=== PATIENT | female | born 1960 | race Caucasian/White ===

== ENCOUNTER 2023-12-25 23:46 | Inpatient (IN) | payer MEDICARE, SELFPAY ==
[2023-12-25 19:49] VITALS: BP 156/84
[2023-12-25 20:44] VITALS: BP 135/73
[2023-12-25 20:53] VITALS: BMI 31.0
[2023-12-25 21:00] VITALS: BP 142/67
[2023-12-25 21:08] LABS: % Basophils 0.3 % (0-2); % Eosinophils 0.1 % (0-6); % Immature Granulocytes 0.3 % (0-0.5); % Lymphocytes 4.2 % (20.5-51.1); % Monocytes 4.7 % (1.7-9.3); % Neutrophils 90.4 % (42.2-75.2); Absolute Lymphocytes 0.3 10^3/uL (1.2-3.4); Absolute Monocytes 0.3 10^3/uL (0.1-0.6); Absolute Neutrophils 6.2 10^3/uL (1.4-6.5); Hemoglobin 9.3 g/dL (12.0-16.0); Mean Corp Hgb Conc. 32.1 g/dL (33.0-37.0); Mean Corpuscular Hgb 29.2 pg (27.0-31.0); Mean Corpuscular Volume 91.2 fL (81.0-99.0); Mean Platelet Volume 9.2 fL (7.4-10.4); Nucleated Red Blood Cells % 0 %; Platelet Count 154 10^3/uL (130-400); Red Blood Cell Count 3.18 10^6/uL (4.20-5.40); Red Cell Dist. Width 14.9 % (11.5-14.5); White Blood Cell Count 6.9 10^3/uL (4.8-10.8)
[2023-12-25 21:19] LABS: Lactic Acid 0.7 mmol/L (0.7-2.0)
[2023-12-25 21:19] LABS: Urine Albumin Trace (Neg - Trace); Urine Bilirubin 1+ (Negative); Urine Character Clear (Clear); Urine Color Yellow; Urine Glucose Negative (Negative); Urine Ketone 2+ (Negative); Urine Leukocyte Negative (Negative); Urine Nitrite Negative (Negative); Urine Occult Blood 1+ (Negative); Urine Specific Gravity 1.015 (<1.030); Urine Urobilinogen Negative (Neg - 1+)
[2023-12-25 21:21] LABS: ALT (SGPT) 14 U/L (0-35); AST (SGOT) 20 U/L (14-36); Albumin 3.8 g/dl (3.5-5.0); Alkaline Phosphatase 91 U/L (38-126); Blood Urea Nitrogen 12 mg/dl (7-17); Calcium 8.5 mg/dl (8.4-10.2); Carbon Dioxide 24 mmol/L (22-30); Chloride 101 mmol/L (98-107); Estimated Creatinine Clearance 97 ml/min; Glucose 120 mg/dl (70-99); Sodium 135 mmol/L (135-145); Total Bilirubin 0.5 mg/dl (0.2-1.3); Total Protein 6.7 g/dl (6.3-8.2); eGFR > 60.00
[2023-12-25 21:27] LABS: Urine Squamous Cell 0-2 /LPF (Few)
[2023-12-25 21:28] LABS: Urine Bacteria Few (Negative); Urine Red Blood Cell 0-2 /HPF (0-2); Urine White Cell 0-2 /HPF (0-5)
--- NOTE | 2023-12-25 21:31 | ED.GENMED ---
History of Present Illness
General
Chief Complaint: Skin Problem
Time Seen by Provider: 12/25/23 20:28
Travel History
Have you had any contact with someone who has COVID-19?: No
Do you have any symptoms of coronavirus? Fever > 100 degrees, chills, cough, shortness of breath, sore throat, loss of taste or smell, muscle aches, or headache?: Yes
Symptoms:: Chills
History of Present Illness
History of Present Illness:
63-year-old female presents to the emergency department for evaluation of confusion she apparently was started on antibiotic yesterday due to a left fifth digit infection and today developed a fever and diarrhea. Patient's daughter states that she
has been quite confused throughout the day has been profoundly weak at baseline. Noted on arrival to be hypoxic as well. Patient reports abdominal discomfort nausea and diarrhea.
Past History
Past History
ED Past Medical History: CAD, GERD, HTN, Hypercholesterolemia, NIDDM and Valvular disease
Social History
Tobacco: Former smoker
Alcohol: None
Personal:
Living: with family
Family History
Family History: CAD
Review of Systems
Review of Systems
Allergies reviewed?: Yes
All Other Systems: ROS reviewed and negative except as documented in HPI and ROS
Phy Exam
Physical Exam
Physical Exam:
GEN: Well appearing, NAD, WDWN
Eyes: PERRLA, EOMs intact, no scleral icterus
HENT: NCAT, oral mucosa moist, no JVD, no cervical adenopathy.
Lungs: CTAB, no wheezes, rales, rhonchi, normal chest wall excursion
Cardiac: RRR, no M/R/G, no peripheral edema. Radial pulses 2+ bilat
Abdomen: Soft, mildly tender to the suprapubic space, no rigidity
Neuro: Alert and oriented x 2, confused to time, moves all extremities freely
MSK: No gross deformity or ecchymosis. No edema. No digital clubbing
Skin: No rashes, petechiae. Normal color, no pallor or jaundice.
Psych: Calm, cooperative, proper hygiene
Course
Orders/Labs/Results
Orders:
Orders
12/25/23 20:23
Electrocardiogram (*1) Urgent
Reason for Study: Other
Other Reason for Exam: Possible Sepsis
Cardiac Monitoring- Treatment ONCE
EKG- Treatment ONCE
IV Insert/Care/Rem.- Treatment PRN
O2 Therapy [RESP] Urgent
Titrate/Wean O2 to maintain O2 sat greater than (%): 93
Special Instructions: TO MAINTAIN CONTINUOUS O2 SATS > OR = 93%
Pulse Ox/cont/shift [RESP] Urgent
Quantity: 1
Special Instructions: CONTINUOUS
12/25/23 20:55
Complete Blood Count/With Diff Urgent
Comprehensive Metabolic Panel Urgent
Lactic Acid Q4H
Comment: ON ICE, CANCEL 2ND ORDER IF FIRST LACTIC ACID LEVEL <2
Blood Culture Q30M
ANGELICA Source: Blood/Venous
Specimen Description:
Comment: FROM 2 SEPARATE SITES
12/25/23 21:03
Straight cath- Treatment ONCE
CR Chest - 2 Views Urgent
Comment:
Reason For Exam: fever hypoxia
12/25/23 21:12
COVID-19 Antigen Urgent
Source: Nasal Swab
Urinalysis Reflex To Culture Urgent
Date Specimen was Collected: 12/25/23
Time Specimen was Collected: 21:11
Urine Microscopic Reflex Cult Urgent
Blood Culture Q30M
ANGELICA Source: Blood/Venous
Specimen Description:
Comment: FROM 2 SEPARATE SITES
12/25/23 21:52
CT Abd/Pel (IV only)-DH only Urgent
Comment:
Reason For Exam: abd pain, nausea, diarrhea
Ondansetron Injectable [Zofran] 4 mg IV NOW STA
12/25/23 23:26
Norovirus by PCR Urgent
ANGELICA Source: Feces/Stool
Specimen Description:
Stool Culture Urgent
ANGELICA Source: Feces/Stool
Specimen Description:
0.9% Sodium Chloride 1000 ml [Nss] 1,000 ml IV BOLUS
Acetaminophen [Tylenol] 650 mg PO NOW STA
12/26/23 00:30
Lactic Acid Q4H
Comment: ON ICE, CANCEL 2ND ORDER IF FIRST LACTIC ACID LEVEL <2
Abnormal Lab Results
12/25/23 12/25/23
20:55 21:12
RBC 3.18 L 10^6/uL
(4.20-5.40)
Hgb 9.3 L g/dL
(12.0-16.0)
Hct 29.0 L %
(37.0-47.0)
MCHC 32.1 L g/dL
(33.0-37.0)
RDW 14.9 H %
(11.5-14.5)
Absolute Lymphs (auto) 0.3 L 10^3/uL
(1.2-3.4)
Neutrophils % 90.4 H %
(42.2-75.2)
Lymphocytes % 4.2 L %
(20.5-51.1)
Glucose 120 H mg/dl
(70-99)
Urine Ketones 2+ A
(Negative)
Ur Occult Blood Reflex 1+ A
(Negative)
Urine Bilirubin 1+ A
(Negative)
Urine Bacteria (Reflex) Few A
(Negative)
12/25/23 20:55
12/25/23 20:55
Vital Signs
Initial and Last Documented VS:
Initial Vital Signs
Temp Pulse Resp BP Pulse Ox
99.9 F 105 18 156/84 92
12/25/23 19:49 12/25/23 19:49 12/25/23 19:49 12/25/23 19:49 12/25/23 19:49
Last Documented Vital Signs
Temp Pulse Resp BP Pulse Ox
98.1 F 90 18 120/65 98
12/25/23 23:35 12/25/23 21:00 12/25/23 19:49 12/25/23 23:00 12/25/23 23:30
MDM/Problems Addressed
MDM/Problems Addressed:
Unclear etiology to the patient's symptoms, could be bacterial versus viral GI illness causing diarrhea. Do not think it is related to the recent antibiotics. She is febrile and somewhat altered, not suitable for discharge home, Do not feel there
is any indication for antibiotics at this time given lack of leukocytosis, will follow stool cultures and norovirus
*Critical Care Note
Total Time (30-74mins, 75-104mins- exclusive of procedures): Not Applicable
ED Attending Note
-
Portions of this chart may have been created with voice recognition software.� Occasional wrong word or��sound alike� substitutions may have occurred due to the inherent limitations of voice recognition software.
Discharge Plan
Departure
Patient Disposition: Admit
Date of Disposition: 12/25/23
Time of Disposition: 23:32
Presentation/result/management discussed w/ accepting MD/DO: Hospitalist
Discharge Problem:
Enterocolitis
Interventions
Interventions:
*Risk Screen - Suicide Last Done: 12/25/23 21:20
*General Assessment Last Done: 12/25/23 21:20
*Neglect/Abuse Screening Last Done: 12/25/23 21:20
ED- Fall Risk Assessment Last Done: 12/25/23 21:20
*ED COVID-19 Vaccine History Last Done: 12/25/23 21:20
ED-Skin Assessment Last Done: 12/25/23 21:20
[2023-12-25 21:38] LABS: COVID-19 Antigen Negative (Negative)
[2023-12-25] MEDS: ZOFRAN 4 MG IV (21:54)
[2023-12-25 22:33] VITALS: BP 154/65
[2023-12-25 23:00] VITALS: BP 120/65
[2023-12-25] MEDS: TYLENOL 650 MG PO (23:33)
[2023-12-25] MEDS: NSS 1000 IV (23:34)
[2023-12-26] VITALS: BP 130/112
--- NOTE | 2023-12-26 00:36 | HPS.HSE ---
Addendum entered and electronically signed by Roberto Pearce MD 12/26/23 05:51:
CXR:
1. Mild acute interstitial and alveolar cardiogenic pulmonary edema.
2. Small left pleural effusion.
3. Previous surgical aortic valve replacement.
4. Previous multilevel anterior and posterior fusion in the cervical spine.
5. Bilateral hydroxyapatite deposition disease in the shoulders.
Pending pro BNP
- on IV Lasix
- await CBC Card evaluation
Original Note:
Family Physician
-
Family Physician: Mic Miller
Chief Complaint
-
abdominal discomfort and Hypoxia
History of Present Illness
I could not get any information from the patient as she is confused
Information gathered by chart review and speaking with the ER staff.
HPI
63F chronic back pain with opiate dependence, neck fusion, CAD status post stent, aortic stenosis status post valve replacement, carotid stenosis status post left carotid endarterectomy on 10/19/2023, prior right-sided carotid surgery 5 years ago,
hypertension, hyperlipidemia, GERD, diabetes, COPD, anxiety/depression, kidney stones presenting with evaluation for AMS
Acute confusional state
- started today
- associated with weakness
- patient was hypoxic on arrival with POx 88%
- New Meds: started on ABx yesterday for eft fifth digit infection yesterday
- Reports abdominal discomfort nausea and diarrhea.
At ER:
Febrile T 100.7
POx 88 on RA
Medical History
Past Medical History
Past Medical History: Reports Other
Additional Past Medical History:
chronic back pain with opiate dependence, neck fusion, CAD status post stent, hypertension, hyperlipidemia, GERD, diabetes, COPD, anxiet)
Past Surgical History: Reports Other
Additional Past Surgical History:
, aortic stenosis status post valve replacement, carotid stenosis status post left carotid endarterectomy on 10/19/2023, prior right-sided carotid surgery 5 years ago
Social History
Tobacco: Non-smoker
Alcohol: None
Drug: None
Family History
Family History: Not pertinent
Allergies / Home Medications
Allergies reflects when Allergies were last updated in [facility].
Home Medications with original date entered in [facility]
Allergy/Medication List:
Allergies
Allergy/AdvReac Type Severity Reaction Status Date / Time
Cephalosporins Allergy Unknown Verified 12/25/23 19:48
clams Allergy Vomiting Verified 12/25/23 19:48
penicillin G Allergy Unknown Verified 12/25/23 19:48
Penicillins Allergy Unknown Verified 12/25/23 19:48
pepper (genus Capsicum) Allergy Vomiting Verified 12/25/23 19:48
sulfamethoxazole AdvReac Mild Creatine Verified 12/25/23 19:48
[From Bactrim] Elevation
trimethoprim [From Bactrim] AdvReac Mild Creatine Verified 12/25/23 19:48
Elevation
Home Medications
gabapentin 600 mg tablet 600 mg PO TID Neuropathic pain 07/06/23
acetaminophen 650 mg tablet,extended release 1,300 mg PO BIDPRN PRN mild pain 07/11/23
aspirin 81 mg tablet,delayed release 81 mg PO DAILY Blood Clot Prevention/Tx 07/11/23
citalopram 40 mg tablet 40 mg PO HS Depression/Anxiety #10 tabs 07/24/23
ferrous sulfate 325 mg (65 mg iron) tablet (FeroSul) 325 mg PO DAILY anemia #30 tabs 07/24/23
pantoprazole 40 mg tablet,delayed release 40 mg PO DAILY #30 tabs 07/24/23
atorvastatin 20 mg tablet (Lipitor) 20 mg PO QPM High Cholesterol 10/26/23
diazepam 5 mg tablet 5 mg PO HSPRN PRN SLEEP 10/26/23
metformin 500 mg tablet 500 mg PO BID@0800,1700 Diabetes 10/26/23
atenolol 25 mg tablet 25 mg PO QPM #30 tabs 10/27/23
oxycodone-acetaminophen 10 mg-325 mg tablet 1 tab PO Q4HPRN PRN SEVERE PAIN #30 tabs 11/10/23
polyethylene glycol 3350 17 gram/dose oral powder 17 g PO DAILY #510 grams 11/10/23
Review of Systems
-
Unable to obtain full review of systems at this time due to: Other (confused )
History Source: Physician and Other (chart )
Constitutional: Reports Weight Gain
EENT: Reports No Symptoms
Respiratory: Reports No Symptoms
Cardiac: Reports No Symptoms
Abdomen/GI: Reports Abdominal Pain and Diarrhea
: Reports No Symptoms
Musculoskeletal: Reports No Symptoms
Neurological: Reports Other (confused )
Physical Exam
Vital Signs
Vital Signs
Temp Pulse Resp BP Pulse Ox
98.1 F 90 18 120/65 98
12/25/23 23:35 12/25/23 21:00 12/25/23 19:49 12/25/23 23:00 12/25/23 23:30
Physical Exam
General: No Apparent Distress
HEENT: NormoCephalic, Anicteric and Moist mucous membranes
Respiratory: Clear; No Wheezes, Rales or Rhonchi
Cardiac: S1/S2 and Regular Rhythm
Breast: Deferred by me
GI: Soft, Non Distended and Tender (mildly tender to lower abdomen below he umbilicus )
Rectal: Deferred by Provider
Genito-urinary: Deferred by me
Skin: Warm and Dry
Psych: Calm (cooperative, proper hygiene)
Laboratory Results
-
12/25/23 20:55
12/25/23 20:55
Laboratory Results
Lactic Acid 0.7 mmol/L (0.7-2.0) 12/25/23 20:55
Total Bilirubin 0.5 mg/dl (0.2-1.3) 12/25/23 20:55
AST 20 U/L (14-36) 12/25/23 20:55
ALT 14 U/L (0-35) 12/25/23 20:55
Alkaline Phosphatase 91 U/L (38-126) 12/25/23 20:55
Data Reviewed
-
CT Scan: Report Reviewed by me
Medical Tests (Nuc Med, Echo, EKG etc): Report Reviewed by me
Lab Data: Labs Reviewed by me
Old Records: Reviewed
Impression/Plan
-
Reviewed VS: T max 100.9 POx 88 on RA hi 90s on 2 L O2 Normotensive , HR 90
Wt 178.2 lb - was 169 lb on 11/09
Data
WCC 6.9
Hgb 9.3 - baseline hi 9s to low 10s
Unremarkable CMP
CT AP w contrast
Prominent fluid in the SB and large BW with some wall thickening suspect enterocolitis
No BWO
Colonic diverticulosis
Distended GB with gall stone
Mild IH and extraheaptic biliary ductal dilatation
Pamcreatic calcification
No free fluid
No free air
NEG UA
NEG Covid
EKG
NORMAL SINUS RHYTHM
NORMAL ECG
WHEN COMPARED WITH ECG OF 02-NOV-2023 16:09,
NO SIGNIFICANT CHANGE WAS FOUND
Echo 11/03/23:
EF 65-70%. Stage II DD, Mild/moderate mitral regurgitation. Mild/moderate MS. MG 5 mmHg. Normally functioning bioprosthetic aortic valve. Peak/mean gradients 19/9 mmHg. No AR. Mildly enlarged right ventricular size with normal function. Moderate TR.
Severely elevated PASP. PAP of 56 mm (done when patient volume overloaded).
Last hospitalist admission: 11/02/23 - 11/10/23
Acute hypoxic respiratory sufficiency
Acute on chronic heart failure with preserved ejection fraction
Chronic obstructive pulmonary disease
Dizziness
Acute left fifth metatarsal fracture
Acute kidney injury secondary to Bactrim
Acute urinary tract infection
Constipation
Hyponatremia
Chronic normocytic anemia of chronic disease
Recent left carotid endarterectomy on 10/19/2023
Coronary artery disease status post stent placement
Aortic stenosis status post valve replacement
Essential hypertension
History of type 2 diabetes, now prediabetic with a hemoglobin A1c of 6.0
Chronic back pain secondary to spinal stenosis on chronic opioids
Anxiety/depression
ASSESSMENT & PLAN
Pending Rx reconciliation
AMS suspect TME : Diff etiology infective encephalopathy vs. Hypoxic RI due to volume expansion with acute on chr HFpEF
Chronic narcotic dependent back pain/spinal stenosis
- evaluation as below for cute infective process , acute HF
- Held Percocet, gabapentin, Diazepam
- fall precaution
CT suggest Enterocolitis - infective vs BW congestion due to volume expansion
- check stool Cx, C Diff, Noro virus
- Hold off on IVF
- Held ABx for now
- Held PPI for now
- GI consult
Volume expansion - gained plus 9 lbs since 11/10/23
Suspect acute on chronic HFpEF: LVEF 65 -70 - associated acute hypoxic RI
Dry weight could be around 170 lbs. Current Wt is 178.2 lb
- She is no longer on Frusemide per daughter
- check pro BNP
- IV Lasix 40 daily
- cont. O2 supplement
- CBC card consult
Bio AVR: stable by echo
CAD s/p CABG: stable
- cont. ASA, statin, and BB
Chronic normocytic anemia
Drop in Hgb is likely due to hemodilution form volume expansion
- Trend Hgb
Recent left carotid endarterectomy on 10/18 with residual improving neck swelling from post op edema
Prior right-sided carotid endarterectomy 5 years ago
- on aspirin, statin
Essential hypertension
Hyperlipidemia
- cont statin
GERD
- Held Protonix while evaluation for C Diff
T2DM
- held metformin
- add ISS low
COPD
Anxiety/depression
- cont citalopram, diazepam
HX kidney stones
DVT Px: SQH
Code: DNR confirmed by daughter at bed side
IP TLM
[2023-12-26 01:20] LABS: Glucose - Point of Care 106 mg/dl (70-99)
[2023-12-26 01:23] VITALS: BP 160/74; BMI 30.6
[2023-12-26] MEDS: LASIX 40 MG IV ×2 (01:38→08:04)
[2023-12-26] MEDS: PERCOCET 5/325 2 TABLET PO ×3 (02:06→19:35)
--- NOTE | 2023-12-26 02:13 | PTCARENOTE ---
Received pt from ER @ 0120. Pt AAOX3, VSS. Pt slid over from stretcher to bed but able to get up to BSC x1 assist. Pt c/o 02/25 back and sciatic pain, medicated per SEP. Pt aware of need of stool sample, will obtain when able.
[2023-12-26 07:35] LABS: Glucose - Point of Care 80 mg/dl (70-99)
[2023-12-26] MEDS: TYLENOL 650 MG PO (08:04)
[2023-12-26] MEDS: ASPIR LOW (ENTERIC COATED) 81 MG PO (08:04)
[2023-12-26 08:17] LABS: Hematocrit 29.3 % (37.0-47.0); Hemoglobin 9.4 g/dL (12.0-16.0); Mean Corp Hgb Conc. 32.1 g/dL (33.0-37.0); Mean Corpuscular Hgb 29.1 pg (27.0-31.0); Mean Corpuscular Volume 90.7 fL (81.0-99.0); Mean Platelet Volume 9.5 fL (7.4-10.4); Platelet Count 149 10^3/uL (130-400); Red Blood Cell Count 3.23 10^6/uL (4.20-5.40); Red Cell Dist. Width 14.6 % (11.5-14.5); White Blood Cell Count 5.2 10^3/uL (4.8-10.8)
[2023-12-26] MEDS: NOVOLOG FLEXPEN-LOW RESISTANCE SC (08:19)
[2023-12-26 08:22] VITALS: BP 145/86
--- NOTE | 2023-12-26 08:22 | W.PN.HOSP.TC ---
Today's Communication/Plan
-
Confusion/lethargy seems improved
Continue diuresis
Stool studies
Appreciate GI and cardiology
Assessment / Plan
Assessment / Plan
Physical Exam
General: Not in acute distress
HEENT: Normocephalic, Moist mucous membranes
Respiratory: Clear; No Wheezes, Rales or Rhonchi
Cardiac: S1/S2 and Regular Rhythm
GI: Soft, Non Distended and Tender (mildly tender to lower abdomen below he umbilicus )
Rectal: Deferred by Provider
Genito-urinary: Deferred by me
Skin: Warm and Dry
Psych: Calm (cooperative, proper hygiene)

63-year-old female with hypertension, hyperlipidemia, diabetes, CABG/AVR, CAD, peripheral vascular disease, COPD, GERD presenting with acute change in mental status and diarrhea, CT scan showing acute enterocolitis, among other significant findings
below.
CT Abdomen/Pelvis Results -- as per radiologist's report:
'IMPRESSION:
1. MODERATE ACUTE INFECTIOUS ENTEROCOLITIS involving most of the small bowel and proximal colon.
2. Severe diverticulosis in the sigmoid colon.
3. Mild urinary bladder wall thickening and perivesical inflammation suggesting ACUTE CYSTITIS.
4. 1.5 cm urinary bladder diverticulum.
5. Chronic pancreatitis.
6. Severe calcific atherosclerotic plaque in the common iliac arteries causing greater than 70% diameter stenoses.
7. Severe calcific atherosclerotic plaque in the abdominal aorta.
8. Small hiatal hernia.
9. Mild to moderate intrahepatic biliary dilatation.
10. Distended gallbladder containing cholelithiasis.
11. Mild hepatomegaly.
12. Mild acute interstitial cardiogenic pulmonary edema.
13. Small left pleural effusion.
14. SEVERE CENTRAL CANAL STENOSIS at L4/L5 secondary to severe facet joint arthrosis and periarticular calcifications around the facet joints.'
Assessment/Plan
Concern for Acute Toxic Metabolic Encephalopathy
Chronic narcotic dependence back pain/spinal stenosis
History of UTI
Microscopic Hematuria on UA
- UA this admission was unremarkable this admission
- Was given antibiotics recently due to left fifth digit infection per reports -- but patient developed diarrhea after antibiotics were started
- Wound care consulted
- Follow blood cultures
Acute enterocolitis, secondary to infection versus other
Chronic Diarrhea since 2019, no GI workup done. Last colonoscopy 20 years ago, colon polyps removed as per patient
History of Opioid-Associated Constipation
- Stool culture, C. difficile, WBC, Giardia/Cryptosporidium
- Celiac panel
- Clear liquid diet
- IV fluids
- GI consulted, recommendations appreciated
Acute on chronic HFpEF
- She is no longer on Furosemide per daughter
- ProBNP elevated
- Continue IV Lasix 40 mg daily
- Patient is not on Lasix at home and will likely need to be placed on 20 mg PO daily on discharge.
- cont. O2 supplement
- Cardiology consulted, recommendations appreciated
- No need to repeat echocardiogram this admission as per cardiology
Coronary artery disease status-close CABG/AVR (07/21/23)
Carotid disease with prior stenting status-post recent left CEA (10/2023)
- cont. ASA, statin, and atenolol
History of left fifth metatarsal fracture
-In a recent admission, podiatry recommended she wears a walking shoe with ambulation, weightbearing as tolerated and follow-up with podiatry in the office in 4-6 weeks (which would be now)
-Consider podiatry consultation for the follow-up of this
Moderate tricuspid regurgitation (PASP 56 mmHg)
Pulmonary hypertension
Mild to moderate mitral stenosis/mitral regurgitation
Chronic normocytic anemia
-Monitor CBC
Recent left carotid endarterectomy on 10/18 with residual improving neck swelling from post op edema
Prior right-sided carotid endarterectomy 5 years ago
-Continue Aspirin and Atorvastatin
Essential hypertension
Hyperlipidemia
-Continue Atorvastatin
GERD
- Held Protonix while evaluation for C Diff
T2DM
- held metformin
- add ISS low
COPD
Anxiety/depression
- cont citalopram, diazepam
History of kidney stones
DVT PPx: Lovenox
Code: Full Code (per patient request on December 26, 2023)
Anticipated Discharge: > 48 hours
Subjective/Interval History
-
Date of Service: December 26, 2023
Patient was seen and examined. She reported some sweating which improved with resuming her home oxycodone.
Objective Data
-
Labs:
Laboratory Results
12/25/23 12/26/23
20:55 07:50
WBC 6.9 Pending
Hgb 9.3 L Pending
Hct 29.0 L Pending
Plt Count 154 Pending
Sodium 135 Pending
Potassium 4.0 Pending
Chloride 101 Pending
Carbon Dioxide 24 Pending
BUN 12 Pending
Creatinine 0.6 Pending
Glucose 120 H Pending
Calcium 8.5 Pending
Total Bilirubin 0.5
AST 20
ALT 14
Alkaline Phosphatase 91
Vital Signs:
Vital Signs
Temp Pulse Resp BP Pulse Ox
98.0 F 99 20 160/74 95
12/26/23 01:23 12/26/23 01:23 12/26/23 01:23 12/26/23 01:23 12/26/23 01:30
I&O
12/25/23 12/26/23 12/27/23
06:59 06:59 06:59
Intake Total 450 / 450
Balance 450 / 450
[2023-12-26 08:29] LABS: Blood Urea Nitrogen 10 mg/dl (7-17); Calcium 8.6 mg/dl (8.4-10.2); Carbon Dioxide 26 mmol/L (22-30); Chloride 97 mmol/L (98-107); Estimated Creatinine Clearance 95 ml/min; Glucose 92 mg/dl (70-99); Potassium 3.6 mmol/L (3.5-5.1); Sodium 136 mmol/L (135-145); eGFR > 60.00
[2023-12-26 08:36] LABS: NT-proBNP 6600 pg/ml
[2023-12-26] MEDS: ROXICODONE 10 MG PO (09:39)
[2023-12-26 09:54] LABS: Glycohemoglobin (HgbA1c) 5.3 % (4.0-5.6)
--- NOTE | 2023-12-26 10:25 | CON.GI ---
Consultation
-
Date/Time Consultation Requested: 12/26/2023
Date/Time Consultation Performed: 12/26/2023
Requesting Provider:
Performing Provider: Dr. Guerrero
Reason for Consultation: Diarrhea
Medical History
Chief Complaint / HPI
Chief Complaint: Diarrhea
History of Present Illness:
63-year-old female with history of hypertension, CAD, peripheral vascular disease, diabetes presenting with confusion, brought in by family. Apparently was started on antibiotic the day prior due to left fifth digit infection and subsequently
developed fever and weakness, was hypoxic in the ER. As per patient and daughter, she has history of chronic diarrhea dating back to 2019, she has about 5-6 softly formed stool with some incontinence and urgency, no nocturnal episodes. No blood in
the stool or black stool. She has been taking iron pills 2 a day since 2019 and her stool is typically dark. Currently denies any abdominal pain, nausea or vomiting. Occasional heartburn, takes famotidine. No trouble swallowing. No loss of
appetite, unintentional weight loss or NSAID use.
Family history of celiac disease in sister. Patient reports having colonoscopy at age 43, polyps removed. No known family history of colon cancer.
CT scan of the abdomen pelvis 12/25/2023 with IV contrast showing moderate acute infectious enterocolitis involving most of the small bowel and proximal colon, diverticulosis without diverticulitis, chronic pancreatitis evidence with diffuse
pancreatic parenchymal atrophy and multiple small calcifications in the pancreatic body. Mild to moderate diffuse intrahepatic biliary dilation without any extrahepatic dilation. Gallbladder distended with stones. No wall thickening.
Reviewing labs, hemoglobin chronically low with baseline between 7 to 10 mg/dL. She is on chronic oral iron.
Past Medical History
Past Medical History: CAD, COPD, GERD, HTN, Hypercholesterolemia, Valvular Disease and Other (diabetes)
Past Surgical History: Other (AVR carotid endarterectomy,)
Social History
Tobacco: Non-Smoker
Alcohol: None
Family History
Family History: Reviewed & Not Pertinent
Allergies / Home Medications
Allergy/AdvReac Type Severity Reaction Status Date / Time
Cephalosporins Allergy Unknown Verified 12/25/23 19:48
clams Allergy Vomiting Verified 12/25/23 19:48
penicillin G Allergy Unknown Verified 12/25/23 19:48
Penicillins Allergy Unknown Verified 12/25/23 19:48
pepper (genus Capsicum) Allergy Vomiting Verified 12/25/23 19:48
sulfamethoxazole AdvReac Mild Creatine Verified 12/25/23 19:48
[From Bactrim] Elevation
trimethoprim [From Bactrim] AdvReac Mild Creatine Verified 12/25/23 19:48
Elevation
�Medication �Instructions �Recorded
gabapentin 600 mg tablet 600 mg PO TID Neuropathic pain 07/06/23
acetaminophen 650 mg 1,300 mg PO BIDPRN PRN mild pain 07/11/23
tablet,extended release
aspirin 81 mg tablet,delayed 81 mg PO DAILY Blood Clot 07/11/23
release Prevention/Tx
citalopram 40 mg tablet 40 mg PO HS Depression/Anxiety #10 07/24/23
tabs
ferrous sulfate 325 mg (65 mg 325 mg PO DAILY anemia #30 tabs 07/24/23
iron) tablet (FeroSul)
pantoprazole 40 mg tablet,delayed 40 mg PO DAILY #30 tabs 07/24/23
release
atorvastatin 20 mg tablet (Lipitor) 20 mg PO QPM High Cholesterol 10/26/23
diazepam 5 mg tablet 5 mg PO HSPRN PRN SLEEP 10/26/23
metformin 500 mg tablet 500 mg PO BID@0800,1700 Diabetes 10/26/23
atenolol 25 mg tablet 25 mg PO QPM #30 tabs 10/27/23
oxycodone-acetaminophen 10 mg-325 1 tab PO Q4HPRN PRN SEVERE PAIN 11/10/23
mg tablet #30 tabs
polyethylene glycol 3350 17 17 g PO DAILY #510 grams 11/10/23
gram/dose oral powder
Review of Systems
-
All other systems: A 12 pt ROS was Negative except as stated above in HPI
Vital Signs
Temp Pulse Resp BP Pulse Ox
98.8 F 96 18 145/86 96
12/26/23 08:22 12/26/23 08:22 12/26/23 08:22 12/26/23 08:22 12/26/23 08:22
Physical Exam
Exam
General: Well Developed and Well Nourished
HEENT: Normocephalic
Cardiac: S1/S2 and Regular Rhythm
GI: Soft, Non Tender and Non Distended
Neuro: Awake and AO x 3
Results
WBC 5.2 10^3/uL (4.8-10.8) 12/26/23 07:50
Hgb 9.4 g/dL (12.0-16.0) L 12/26/23 07:50
Hct 29.3 % (37.0-47.0) L 12/26/23 07:50
MCV 90.7 fL (81.0-99.0) 12/26/23 07:50
Plt Count 149 10^3/uL (130-400) 12/26/23 07:50
Absolute Neuts (auto) 6.2 10^3/uL (1.4-6.5) 12/25/23 20:55
Sodium 136 mmol/L (135-145) 12/26/23 07:50
Potassium 3.6 mmol/L (3.5-5.1) 12/26/23 07:50
Chloride 97 mmol/L (98-107) L 12/26/23 07:50
Carbon Dioxide 26 mmol/L (22-30) 12/26/23 07:50
BUN 10 mg/dl (7-17) 12/26/23 07:50
Creatinine 0.6 mg/dL (0.6-1.0) 12/26/23 07:50
Calcium 8.6 mg/dl (8.4-10.2) 12/26/23 07:50
Total Bilirubin 0.5 mg/dl (0.2-1.3) 12/25/23 20:55
AST 20 U/L (14-36) 12/25/23 20:55
ALT 14 U/L (0-35) 12/25/23 20:55
Alkaline Phosphatase 91 U/L (38-126) 12/25/23 20:55
Diagnostic Image Results:
Prior GI Procedures:
EGD:
Colonoscopy:
Assessment / Plan
-
63-year-old female with hypertension, diabetes, CAD, peripheral vascular disease, COPD, GERD presenting with acute change in mental status, CT scan showing acute enterocolitis and GI consult was called in.
Chronic diarrhea since 2019, no GI workup done. Last colonoscopy 20 years ago, colon polyps removed as per patient.
-Acute enterocolitis, rule out infectious versus other
Check stool for culture, C. difficile, WBC, Giardia/Cryptosporidium.
Will check celiac panel.
Monitor electrolytes and replete.
IV hydration.
Clear liquid diet, advance as tolerated
-Chronic anemia, baseline between 7 to 10 mg/dL
-Chronic diarrhea-await stool studies
Will add fecal fat given possibility of chronic pancreatitis on CT scan.
Outpatient GI follow-up
-
-
Thank you for consultation and allowing me to participate in the patient's care. Please call the fashion illustrator GI physician during the after hours with any questions or concerns.
--- NOTE | 2023-12-26 10:54 | CM ---
Patient seen bedside.
IA completed.
Patient lives with daughter in a 1 story home with 2 steps to enter.
Patient ambulates with a cane or RW.
After multiple admissions, progressed from RW to cane at home.
Patient drives.
Patient has oxygen at home if needed.
Patient current with [facility] and would like to resume services.
PCP: Dr Miller
Pharmacy: [facility]
Plan: home with [facility]
[2023-12-26 11:38] LABS: Glucose - Point of Care 189 mg/dl (70-99)
[2023-12-26] MEDS: NOVOLOG FLEXPEN-LOW RESISTANCE 1 UNITS SC (12:20)
[2023-12-26 13:45] VITALS: PULSE 96
--- NOTE | 2023-12-26 14:53 | CON.CAR ---
Consultation
Consultation Request
Date/Time Consultation Requested: 12/26/2023
Date/Time Consultation Performed: 12/26/2023
Requesting Provider: Dr. Pearce
Performing Provider: Dr. Small
Reason for Consultation: Possible CHF
Medical History
-
Chief Complaint: Change in mental status
History of Present Illness:
63-year-old female with coronary artery disease status-close CABG/AVR (07/21/23), hypertension, hyperlipidemia, moderate tricuspid regurgitation (PASP 56 mmHg), pulmonary hypertension, mild to moderate mitral stenosis/mitral regurgitation, DM, carotid
disease with prior stenting status-post recent left CEA (10/2023), and chronic opioid dependence admitted with change in mental status and diarrhea. The patient was started on an antibiotic 2 days ago due to left fifth digit infection and
subsequently developed symptoms. CT of the abdomen/pelvis on admission revealed moderate acute infectious enterocolitis involving most of the small bowel and proximal colon; GI consulted.
Past Medical History
Past Medical History: CAD (Status-post CABG), HTN, Hypercholesterolemia, NIDDM and Valvular Disease (TR, MS, MR)
Past Surgical History: Cardiac (CABG/AVR) and Other (Left CEA, carotid stenting)
Social History
Tobacco: Non-Smoker
Alcohol: None
Living: With Family
Family History
Family History: Reviewed & Not Pertinent
Allergies / Home Medications
Allergy/AdvReac Type Severity Reaction Status Date / Time
Cephalosporins Allergy Unknown Verified 12/25/23 19:48
clams Allergy Vomiting Verified 12/25/23 19:48
penicillin G Allergy Unknown Verified 12/25/23 19:48
Penicillins Allergy Unknown Verified 12/25/23 19:48
pepper (genus Capsicum) Allergy Vomiting Verified 12/25/23 19:48
sulfamethoxazole AdvReac Mild Creatine Verified 12/25/23 19:48
[From Bactrim] Elevation
trimethoprim [From Bactrim] AdvReac Mild Creatine Verified 12/25/23 19:48
Elevation
�Medication �Instructions �Recorded �Confirmed �Type
gabapentin 600 mg tablet 600 mg PO TID Neuropathic pain 07/06/23 12/26/23 History
acetaminophen 650 mg 1,300 mg PO BIDPRN PRN mild pain 07/11/23 12/26/23 History
tablet,extended release
aspirin 81 mg tablet,delayed 81 mg PO DAILY Blood Clot 07/11/23 12/26/23 History
release Prevention/Tx
citalopram 40 mg tablet 40 mg PO HS Depression/Anxiety #10 07/24/23 12/26/23 Rx
tabs
ferrous sulfate 325 mg (65 mg 325 mg PO DAILY anemia #30 tabs 07/24/23 12/26/23 Rx
iron) tablet (FeroSul)
pantoprazole 40 mg tablet,delayed 40 mg PO DAILY #30 tabs 07/24/23 12/26/23 Rx
release
atorvastatin 20 mg tablet (Lipitor) 20 mg PO QPM High Cholesterol 10/26/23 12/26/23 History
diazepam 5 mg tablet 5 mg PO HSPRN PRN SLEEP 10/26/23 12/26/23 History
metformin 500 mg tablet 500 mg PO BID@0800,1700 Diabetes 10/26/23 12/26/23 History
atenolol 25 mg tablet 25 mg PO QPM #30 tabs 10/27/23 12/26/23 Rx
oxycodone-acetaminophen 10 mg-325 1 tab PO Q4HPRN PRN SEVERE PAIN 11/10/23 12/26/23 Rx
mg tablet #30 tabs
polyethylene glycol 3350 17 17 g PO DAILY #510 grams 11/10/23 12/26/23 Rx
gram/dose oral powder
Review of Systems
-
Unable to obtain full review of systems at this time due to: Other (Suboptimal mental status)
Physical Exam
Vital Signs
Temp Pulse Resp BP Pulse Ox
98.8 F 96 18 145/86 96
12/26/23 08:22 12/26/23 08:22 12/26/23 08:22 12/26/23 08:22 12/26/23 08:22
Lab Results
12/26/23 07:50
12/26/23 07:50
Vhp-G-Nxxklandxll Pept 6600 pg/ml 12/26/23 07:50
Physical Exam
General: No Apparent Distress and Comfortable
HEENT: Anicteric
Respiratory: Clear
Cardiac: S1/S2, Regular Rhythm and Murmur
Impression / Plan
-
63-year-old female with coronary artery disease status-close CABG/AVR (07/21/23), chronic HFpEF, hypertension, moderate tricuspid regurgitation (PASP 56 mmHg), pulmonary hypertension, mild to moderate mitral stenosis/mitral regurgitation, DM, carotid
disease with prior stenting status-post recent left CEA (10/2023), and chronic opioid dependence admitted with change in mental status and diarrhea. The patient was started on an antibiotic 2 days ago due to left fifth digit infection and
subsequently developed symptoms. CT of the abdomen/pelvis on admission revealed moderate acute infectious enterocolitis involving most of the small bowel and proximal colon; GI consulted.
Likely mild acute on chronic HFpEF:
-Cardiac BNP 6600; it was 6480 2 months ago.
-Continue Lasix 40 mg IV daily; patient is not on Lasix at home and will likely need to be placed on 20 mg PO daily on discharge.
-Transthoracic Echocardiogram 11/03/2023: LVEF 65-70%, mild/moderate MR, mild/moderate MS, normally functioning bioprosthetic aortic valve (peak/mean gradients 19/9 mmHg), moderate TR, estimated PAP 56 mmHg.
-NO NEED TO REPEAT ECHOCARDIOGRAM.
Acute infectious enterocolitis:
-Recommendations as per GI.
CAD/AVR (07/21/2023):
-Stable.
-Continue aspirin, statin, atenolol.
Hyperlipidemia:
-Continue atorvastatin.
Hypertension:
-Fairly controlled; continue current medication regimen.
Chronic opioid dependence/change in mental status:
-Management as per primary team.
Data Reviewed
-
EKG: Tracing Personally Visualized and interpreted (Normal sinus rhythm at 95 bpm; within normal limits.)
Medical Tests (Nuc Med, Echo etc): Report Reviewed by me (Transthoracic echocardiogram 11/03/2023): EF 65-70%, mild/moderate MS/MR, normally functioning bioprosthetic aortic valve, moderate tricuspid regurgitation.)
Labs: Labs Reviewed by me
[2023-12-26 15:22] VITALS: BP 155/86
[2023-12-26] MEDS: NEURONTIN 600 MG PO ×2 (15:32→21:03)
--- NOTE | 2023-12-26 15:44 | PTCARENOTE ---
Notified the provider of the patient's low grade temp and needing to be placed back on O2. 2LNC applied and patient given Percocet for pain and temperature, no further needs assessed at this time.
[2023-12-26 16:42] LABS: Glucose - Point of Care 205 mg/dl (70-99)
[2023-12-26] MEDS: TENORMIN 25 MG PO (17:42)
[2023-12-26] MEDS: LIPITOR 20 MG PO (17:42)
[2023-12-26] MEDS: LOVENOX 40 MG SC (17:42)
[2023-12-26] MEDS: NOVOLOG FLEXPEN-LOW RESISTANCE 2 UNITS SC (17:43)
--- NOTE | 2023-12-26 18:06 | PTCARENOTE ---
Notified provider that the patient report she has not been taking her Lasix at home as ordered.
[2023-12-26] MEDS: CELEXA 40 MG PO (21:03)
[2023-12-26 21:46] LABS: Glucose - Point of Care 160 mg/dl (70-99)
[2023-12-26 23:07] VITALS: BP 139/69
[2023-12-27 05:12] VITALS: BMI 29.1
[2023-12-27] MEDS: PROTONIX 40 MG PO (07:40)
[2023-12-27] MEDS: ASPIR LOW (ENTERIC COATED) 81 MG PO (07:40)
[2023-12-27] MEDS: LASIX 40 MG IV (07:40)
[2023-12-27] MEDS: NEURONTIN 600 MG PO ×3 (07:40→20:32)
[2023-12-27] MEDS: FEOSOL 325 MG PO (07:40)
[2023-12-27] MEDS: NOVOLOG FLEXPEN-LOW RESISTANCE 1 UNITS SC ×2 (07:49→11:51)
[2023-12-27 07:50] VITALS: BP 119/66
[2023-12-27 07:59] LABS: Glucose - Point of Care 172 mg/dl (70-99)
[2023-12-27] MEDS: PERCOCET 5/325 2 TABLET PO ×3 (08:26→20:33)
[2023-12-27 09:38] LABS: Hematocrit 31.2 % (37.0-47.0); Hemoglobin 9.9 g/dL (12.0-16.0); Mean Corp Hgb Conc. 31.7 g/dL (33.0-37.0); Mean Corpuscular Hgb 29.1 pg (27.0-31.0); Mean Corpuscular Volume 91.8 fL (81.0-99.0); Mean Platelet Volume 9.5 fL (7.4-10.4); Platelet Count 175 10^3/uL (130-400); Red Cell Dist. Width 14.5 % (11.5-14.5); White Blood Cell Count 3.7 10^3/uL (4.8-10.8)
--- NOTE | 2023-12-27 10:12 | WOUNDNOTE ---
L FINGERS (PALM SIDE)
[2023-12-27 10:16] LABS: ALT (SGPT) 38 U/L (0-35); AST (SGOT) 59 U/L (14-36); Albumin 3.7 g/dl (3.5-5.0); Alkaline Phosphatase 81 U/L (38-126); Blood Urea Nitrogen 16 mg/dl (7-17); Calcium 8.6 mg/dl (8.4-10.2); Carbon Dioxide 28 mmol/L (22-30); Chloride 93 mmol/L (98-107); Estimated Creatinine Clearance 80 ml/min; Glucose 162 mg/dl (70-99); IgA 313 mg/dl (70-400); Magnesium 1.4 mg/dl (1.6-2.3); Potassium 3.1 mmol/L (3.5-5.1); Sodium 133 mmol/L (135-145); Total Bilirubin 0.5 mg/dl (0.2-1.3); Total Protein 6.8 g/dl (6.3-8.2); eGFR > 60.00
--- NOTE | 2023-12-27 10:26 | WOUNDNOTE ---
[facility] RN note: Patient admitted with enterocolitis. Patient lives alone.
See H&P for complete history.
PMH: aortic valve replacement, chronic back pain, opiate dependence, neck fusion, CAD with stent, endarterectomy 10/19/[address] Roe, DM, COPD, anxiety/depression, kidney stones, HTN.
Wound Location and type/assessment: Patient admitted with: L little finger small cyst wound with mild diffuse erythema and pinpoint purulent drainage. Patient mentioned she just started Bactrim prior to admission. MASD abdominal/groin folds,
perineum d/t diarrhea.
Appetite: on clear liquid diet currently.
Pressure redistribution devices in place: [employer] Accumax. Patient can turn self in bed.
Plan: Dressing changed on L little finger. Wound culture taken incase physician orders. Patient incontinent of loose stool. Assisted PCT Cee with isac care. Heels off bed with pillow. Instructed patient pressure injury prevention measures.
Will confirm order with Dr. Flores and discussed with EMMA Gunter.
Care plan to be updated and will follow as needed.
--- NOTE | 2023-12-27 10:40 | WOUNDNOTE ---
[facility] RN note: Patient admitted with enterocolitis. Patient lives alone.
See H&P for complete history.
PMH: aortic valve replacement, chronic back pain, opiate dependence, neck fusion, CAD with stent, endarterectomy 10/19/[address] Roe, DM, COPD, anxiety/depression, kidney stones, HTN.
Wound Location and type/assessment: Patient admitted with: L little finger small cyst wound with mild diffuse erythema and pinpoint purulent drainage. Patient mentioned she just started Bactrim prior to admission. MASD abdominal/groin folds,
perineum d/t diarrhea.
Appetite: on clear liquid diet currently.
Pressure redistribution devices in place: [employer] Accumax. Patient can turn self in bed.
Plan: Dressing changed on L little finger. Wound culture taken incase physician orders. Patient incontinent of loose stool. Assisted PCT Cee with isac care. Heels off bed with pillow. Instructed patient pressure injury prevention measures.
Updated including tiger text wound picture of L little finger and confirmed local care with Dr. Flores. Discussed with EMMA Gunter.
Care plan to be updated and will follow as needed.
[2023-12-27 11:46] LABS: Glucose - Point of Care 169 mg/dl (70-99)
[2023-12-27] MEDS: KCL 40 MEQ PO (12:52)
[2023-12-27] MEDS: MAGNESIUM SULFATE 50 IV (12:52)
--- NOTE | 2023-12-27 12:54 | W.PN.CD ---
Today's Communication / Plan
-
-
-
Suspected acute on chronic HFpEF
- Continue Lasix 40 mg IV daily for now
- Anticipate home on Lasix, perhaps 20 mg a day
- Later can consider additional GDMT for HFpEF (MRA, SLGT2-I/ARNI vs ARB)
Hypokalemia => agree with repletion with KCl
Impression / Plan
-
63-year-old female with coronary artery disease status/post CABG/AVR (07/21/23), chronic HFpEF, hypertension, moderate tricuspid regurgitation (PASP 56 mmHg), pulmonary hypertension, mild to moderate mitral stenosis/mitral regurgitation, DM, carotid
disease with prior stenting status-post recent left CEA (10/2023), and chronic opioid dependence admitted with change in mental status and diarrhea. The patient was started on an antibiotic 2 days ago due to left fifth digit infection and
subsequently developed symptoms. CT of the abdomen/pelvis on admission revealed moderate acute infectious enterocolitis involving most of the small bowel and proximal colon; GI consulted.
Admission with main issues of change in mental status and diarrhea
Noted to have suspected mild acute on chronic HFpEF:
- CXR read as HF, and pBNP 6600; it was 6480 twp months ago.
- Continue Lasix 40 mg IV daily for now
- Anticipate home on Lasix, perhaps 20 mg a day
- Later can consider additional GDMT for HFpEF (MRA, SLGT2-I/ARNI vs ARB)
Hypokalemia
- Repletion started
Acute enterocolitis with diarrhea
- Suspected infectious
- W/u in progress
- Per GI and hospitialist
CAD/AVR (CABG/AVR 07/21/2023)
Hyperlipidemia
Hypertension
Chronic opioid use
Improved mentation
Subjective:
No CP or dyspnea
Data:
Echo 11/03/2023: LVEF 65-70%, mild/mod MR/MS, normally functioning bio AVR(mean 9 mmHg), mod TR, est PASP 56 mmHg.
Physical Exam
Vital Signs/Labs
Vital Signs
Temp Pulse Resp BP Pulse Ox
98.7 F 78 18 119/66 95
12/27/23 07:50 12/27/23 07:50 12/27/23 07:50 12/27/23 07:50 12/27/23 08:08
12/26/23 12/27/23 12/28/23
06:59 06:59 06:59
Actual Weight 79.107 kg 76.884 kg
12/27/23 08:54
12/27/23 08:54
Magnesium 1.4 mg/dl (1.6-2.3) L 12/27/23 08:54
12/26/23
07:50
Hyi-R-Xeznvpqganm Pept 6600
Physical Exam
Constitutional: No acute distress
EENT: Anicteric
Cardiovascular: Rhythm & rate is regular
Respiratory: Respiratory effort normal
GI: Soft
Neuro/Psych: Alert
Data Reviewed
-
Date of Service: December 27, 2023
--- NOTE | 2023-12-27 14:07 | W.PN.GI.CBS2 ---
Today's Communication / Plan
-
-Acute enterocolitis, rule out infectious versus other
Stool for C. difficile, Cryptosporidium, Giardia and white cells negative, cultures pending and celiac panel pending.
Await fecal fat, calprotectin and pancreatic elastase.
Monitor electrolytes and replete.
Okay to advance to low residue diet
-Chronic anemia, baseline between 7 to 10 mg/dL
Needs outpatient follow-up.
-Chronic diarrhea-await stool studies
Fecal fat, pancreatic elastase pending with possibility of chronic pancreatitis on CT scan.
Denies alcohol use or previous history of pancreatitis.
If able to tolerate low residue diet, no further inpatient GI workup.
Assessment / Plan
-
63-year-old female with hypertension, diabetes, CAD, peripheral vascular disease, COPD, GERD presenting with acute change in mental status, CT scan showing acute enterocolitis and GI consult was called in.
Chronic diarrhea since 2019, no GI workup done. Last colonoscopy 20 years ago, colon polyps removed as per patient.
-Acute enterocolitis, rule out infectious versus other
Stool for C. difficile, Cryptosporidium, Giardia and white cells negative, cultures pending and celiac panel pending.
Await fecal fat, calprotectin and pancreatic elastase.
Monitor electrolytes and replete.
Okay to advance to low residue diet
-Chronic anemia, baseline between 7 to 10 mg/dL
Needs outpatient follow-up.
-Chronic diarrhea-await stool studies
Fecal fat, pancreatic elastase pending with possibility of chronic pancreatitis on CT scan.
Denies alcohol use or previous history of pancreatitis.
Outpatient GI follow-up
Subjective
Subjective
Date of Service: December 27, 2023
Patient reports some intermittent abdominal cramping but not significant. Had 3 nonbloody loose stool this morning. Currently on clear liquid diet
Objective
Data Reviewed
Laboratory Data:
Laboratory Results
12/27/23 08:54
12/27/23 08:54
Laboratory Results
Magnesium 1.4 mg/dl (1.6-2.3) L 12/27/23 08:54
Total Bilirubin 0.5 mg/dl (0.2-1.3) 12/27/23 08:54
AST 59 U/L (14-36) H 12/27/23 08:54
ALT 38 U/L (0-35) H 12/27/23 08:54
Alkaline Phosphatase 81 U/L (38-126) 12/27/23 08:54
Vital Signs and I&O:
Vital Signs
Temp Pulse Resp BP Pulse Ox
98.7 F 78 18 119/66 95
12/27/23 07:50 12/27/23 07:50 12/27/23 07:50 12/27/23 07:50 12/27/23 08:08
I&O
12/26/23 12/27/23 12/28/23
06:59 06:59 06:59
Intake Total 450 / 450 480 / 480
Output Total 1600 / 1600
Balance 450 / 450 -1120 / -1120
Physical Exam
Physical Exam
GI: Soft, Non Distended and Non Tender
[2023-12-27 15:10] VITALS: BP 105/57
--- NOTE | 2023-12-27 16:32 | W.PN.HOSP.TC ---
Today's Communication/Plan
-
Possible transition to oral Lasix tomorrow
Wean off oxygen as possible
Follow-up bacterial stool culture
PT OT ordered
Assessment / Plan
Assessment / Plan
CT Abdomen/Pelvis Results -- as per radiologist's report:
'IMPRESSION:
1. MODERATE ACUTE INFECTIOUS ENTEROCOLITIS involving most of the small bowel and proximal colon.
2. Severe diverticulosis in the sigmoid colon.
3. Mild urinary bladder wall thickening and perivesical inflammation suggesting ACUTE CYSTITIS.
4. 1.5 cm urinary bladder diverticulum.
5. Chronic pancreatitis.
6. Severe calcific atherosclerotic plaque in the common iliac arteries causing greater than 70% diameter stenoses.
7. Severe calcific atherosclerotic plaque in the abdominal aorta.
8. Small hiatal hernia.
9. Mild to moderate intrahepatic biliary dilatation.
10. Distended gallbladder containing cholelithiasis.
11. Mild hepatomegaly.
12. Mild acute interstitial cardiogenic pulmonary edema.
13. Small left pleural effusion.
14. SEVERE CENTRAL CANAL STENOSIS at L4/L5 secondary to severe facet joint arthrosis and periarticular calcifications around the facet joints.'

Acute Toxic Metabolic Encephalopathy - Improved
Chronic narcotic dependence back pain/spinal stenosis
-UA this admission was unremarkable this admission
-Was given antibiotics recently due to left fifth digit infection per reports -- but patient developed diarrhea after antibiotics were started
-Encephalopathy likely from polypharmacy and enterocolitis
Acute enterocolitis
Chronic pancreatitis
-CT abdomen pelvis reading changes of chronic pancreatitis, may explain diarrhea since 2019
-CT abdomen pelvis also showing enterocolitis, infectious etiology being ruled out
-C. difficile/stool WBC/Cryptosporidium/Giardia negative. Bacterial culture report pending
-Currently off of antibiotics
-GI following and help appreciated
Acute on chronic HFpEF
Acute hypoxic respiratory insufficiency
-Patient has not been taking Lasix for the last month or so
- ProBNP elevated
- Continue IV Lasix 40 mg daily , weight is downtrending cardiology will plan to transition to oral Lasix tomorrow
-Wean off oxygen as possible
Coronary artery disease status-close CABG/AVR (07/21/23)
Carotid disease with prior stenting status-post recent left CEA (10/2023)
- cont. ASA, statin, and atenolol
History of left fifth metatarsal fracture
-In a recent admission, podiatry recommended she wears a walking shoe with ambulation, weightbearing as tolerated and follow-up with podiatry in the office in 4-6 weeks (which would be now)
Moderate tricuspid regurgitation (PASP 56 mmHg)
Pulmonary hypertension
Mild to moderate mitral stenosis/mitral regurgitation
Chronic normocytic anemia
Recent left carotid endarterectomy on 10/18 with residual improving neck swelling from post op edema
Prior right-sided carotid endarterectomy 5 years ago
Essential hypertension
Hyperlipidemia
GERD
T2DM
COPD
Anxiety/depression
History of kidney stones
DVT PPx: Lovenox
Code: Full Code (per patient request on December 26, 2023)
Anticipated Discharge: 24 - 48 hours
Subjective/Interval History
-
Date of Service: December 27, 2023
Patient on oxygen through nasal cannula, denies having dyspnea
no cough/Chest pain
Objective Data
-
Labs:
Laboratory Results
12/27/23
08:54
WBC 3.7 L
Hgb 9.9 L
Hct 31.2 L
Plt Count 175
Sodium 133 L
Potassium 3.1 L
Chloride 93 L
Carbon Dioxide 28
BUN 16
Creatinine 0.7
Glucose 162 H
Calcium 8.6
Total Bilirubin 0.5
AST 59 H
ALT 38 H
Alkaline Phosphatase 81
Vital Signs:
Vital Signs
Temp Pulse Resp BP Pulse Ox
98.7 F 78 18 119/66 95
12/27/23 07:50 12/27/23 07:50 12/27/23 07:50 12/27/23 07:50 12/27/23 08:08
I&O
12/26/23 12/27/23 12/28/23
06:59 06:59 06:59
Intake Total 450 / 450 480 / 480
Output Total 1600 / 1600
Balance 450 / 450 -1120 / -1120
Review of Systems
-
Respiratory: Reports No Symptoms
Cardiac: Reports No Symptoms
Abdomen/GI: Reports No Symptoms
Physical Exam
-
General: No Apparent Distress and Comfortable
HEENT: Negative Oxygen
Respiratory: Clear to Auscultation
Cardiac: Regular Rhythm and S1/S2; Negative Murmur or Rub
GI: Soft, Nontender and Nondistended
Musculoskeletal: No Edema
Neuro: Awake, Alert, Oriented, No Motor Deficits and Nonfocal/Grossly Intact
Psych: Calm
[2023-12-27] MEDS: NOVOLOG FLEXPEN-LOW RESISTANCE SC (17:13)
[2023-12-27] MEDS: LIPITOR 20 MG PO (17:14)
[2023-12-27] MEDS: TENORMIN 25 MG PO (17:14)
[2023-12-27 17:15] LABS: Glucose - Point of Care 120 mg/dl (70-99)
[2023-12-27] MEDS: LOVENOX 40 MG SC (17:35)
[2023-12-27] MEDS: DESENEX/MITRAZOL/ZEASORB 1 APPLIC TOPICAL (20:31)
[2023-12-27] MEDS: CELEXA 40 MG PO (20:32)
[2023-12-27 20:52] LABS: Glucose - Point of Care 203 mg/dl (70-99)
[2023-12-27 23:10] VITALS: BP 122/49
[2023-12-28 01:59] VITALS: BP 114/61
[2023-12-28] MEDS: PERCOCET 5/325 2 TABLET PO ×3 (05:56→21:29)
[2023-12-28 06:00] VITALS: BMI 28.6
[2023-12-28 08:00] VITALS: BP 93/48
--- NOTE | 2023-12-28 08:23 | W.PN.GI.CBS2 ---
Addendum entered and electronically signed by Jenn Casas DO 12/28/23 15:40:
Patient seen and examined independently of TAXATION ACCOUNTANT. I agree with her note with my additions below
Patient has had improvements in her abdominal symptoms and diarrhea. Stool studies have all been negative including norovirus, Giardia cryptosporidium. Stool culture still pending to be final but stool leukocytes are negative, C. difficile negative
I reviewed her CT scan myself from 12/25/2023 showing inflammation of the small bowel and proximal colon
-- Patient is tolerating current diet and was having diarrhea fasting or nonfasting
-- Patient is on cholestyramine twice daily which she felt like it did help today where she was having less watery stools
-- Keep up with hydration, patient had a small bump in her kidney function today
-- Told her she will need follow-up outpatient with GI. We did get her an appointment but she says she lives in [place] and would prefer to follow-up with [facility]. I told her to call today and make an appointment and we can send records to
them
Original Note:
Today's Communication / Plan
-
await pending labs, retrial diet
Assessment / Plan
-
63-year-old female with hypertension, diabetes, CAD, peripheral vascular disease, COPD, GERD presenting with acute change in mental status, CT scan showing acute enterocolitis and GI consult was called in.
Chronic diarrhea since 2019, no GI workup done. Last colonoscopy 20 years ago, colon polyps removed as per patient.
-Acute enterocolitis, rule out infectious versus other
Stool for C. difficile, Cryptosporidium, Giardia and white cells negative, cultures pending and celiac panel pending.
Await fecal fat, calprotectin and pancreatic elastase. Add TSH/T4
Monitor electrolytes and replete.
Okay to advance to low residue diet, discussed with patient food choices going forward.
-Chronic anemia, baseline between 7 to 10 mg/dL
Needs outpatient follow-up. Discussed EGD/COLO as outpatient.
-Chronic diarrhea-await stool studies
Fecal fat, pancreatic elastase pending with possibility of chronic pancreatitis on CT scan.
Denies alcohol use or previous history of pancreatitis.
Outpatient GI follow-up, appt with [facility] 02/01/24 11:30
Subjective
Subjective
Date of Service: December 28, 2023
Patient was tolerating clears however was advanced to low residue diet last evening and she had a cheese steak sandwich, noodles and a diet coke and she states that she vomited x 1 and had 3 episodes of diarrhea over night. Documentation shows the
diarrhea was green and watery. Patient denied any abdominal pain. We are still awaiting stool cultures, celiac panel, fecal calpro, fecal fat and pancreatic elastase. Will add TSH/T4. (Negative norovirus, neg Cdiff, negative crypto/giardia, neg
WBC). Hgb has been stable and increasing, await this am results. Patient running intermittent low grade temp during admission, Tmax 100.9 on 12/24 and 100.0 on 12/25 and 99.3 overnight.
Objective
Data Reviewed
Laboratory Data:
Laboratory Results
Magnesium 1.4 mg/dl (1.6-2.3) L 12/27/23 08:54
Total Bilirubin 0.5 mg/dl (0.2-1.3) 12/27/23 08:54
AST 59 U/L (14-36) H 12/27/23 08:54
ALT 38 U/L (0-35) H 12/27/23 08:54
Alkaline Phosphatase 81 U/L (38-126) 12/27/23 08:54
Vital Signs and I&O:
Vital Signs
Temp Pulse Resp BP Pulse Ox
99.3 F 83 20 114/61 97
12/28/23 01:59 12/28/23 01:59 12/28/23 01:59 12/28/23 01:59 12/28/23 01:59
I&O
0612/28/23 12/29/23
06:59 06:59 06:59
Intake Total 480 / 480 720 / 720
Output Total 1600 / 1600 400 / 400
Balance -1120 / -1120 320 / 320
Physical Exam
Physical Exam
HEENT: Anicteric
Cardiology: Normal Sinus Rhythm
Pulmonary: Clear (anterior)
GI: Soft, Non Distended, Non Tender and Normal Bowel Sounds
Neuro: Non Focal
[2023-12-28 08:46] LABS: Glucose - Point of Care 159 mg/dl (70-99)
[2023-12-28] MEDS: NOVOLOG FLEXPEN-LOW RESISTANCE 1 UNITS SC (08:47)
[2023-12-28] MEDS: BACTROBAN 2% OINTMENT 1 APPLIC TOPICAL (08:48)
[2023-12-28] MEDS: DESENEX/MITRAZOL/ZEASORB 1 APPLIC TOPICAL ×2 (08:48→20:49)
[2023-12-28] MEDS: NEURONTIN 600 MG PO ×3 (08:48→21:28)
[2023-12-28] MEDS: FEOSOL 325 MG PO (08:48)
[2023-12-28] MEDS: PROTONIX 40 MG PO (08:48)
[2023-12-28] MEDS: ASPIR LOW (ENTERIC COATED) 81 MG PO (08:48)
[2023-12-28 09:36] LABS: Hematocrit 30.9 % (37.0-47.0); Hemoglobin 10.2 g/dL (12.0-16.0); Mean Corpuscular Hgb 29.1 pg (27.0-31.0); Mean Platelet Volume 9.4 fL (7.4-10.4); Platelet Count 194 10^3/uL (130-400); Red Blood Cell Count 3.51 10^6/uL (4.20-5.40); Red Cell Dist. Width 14.4 % (11.5-14.5); White Blood Cell Count 4.6 10^3/uL (4.8-10.8)
[2023-12-28] MEDS: LASIX 40 MG IV (10:01)
[2023-12-28 10:03] LABS: ALT (SGPT) 30 U/L (0-35); AST (SGOT) 29 U/L (14-36); Albumin 3.7 g/dl (3.5-5.0); Alkaline Phosphatase 90 U/L (38-126); Blood Urea Nitrogen 36 mg/dl (7-17); Calcium 8.8 mg/dl (8.4-10.2); Carbon Dioxide 23 mmol/L (22-30); Chloride 94 mmol/L (98-107); Estimated Creatinine Clearance 43 ml/min; Glucose 133 mg/dl (70-99); Magnesium 1.8 mg/dl (1.6-2.3); Potassium 3.4 mmol/L (3.5-5.1); Sodium 130 mmol/L (135-145); Total Bilirubin 0.5 mg/dl (0.2-1.3); Total Protein 6.8 g/dl (6.3-8.2); eGFR 45.63
[2023-12-28 10:33] LABS: TSH Reflex To Free T4 4.11 uIU/ml (0.47-4.68)
--- NOTE | 2023-12-28 10:59 | W.PN.CD ---
Addendum entered and electronically signed by Carmenza Stevens MD 12/28/23 13:20:
I saw and examined the patient.
The SOCIAL SERVICES ANALYST's note was reviewed and I agree with the note.
Comment: She denies sob, cp. Only complaint is diarrhea. She has some bibaslar rales, rrr no m/r/g. a,o x3. She already recieved lasix today will hold tomorrow. Plan to resume po lasix . GDMT when able, may be done as an outpatient.
Original Note:
Today's Communication / Plan
-
Creatinine with slight bump today, discontinue furosemide 40mg IV daily (she did receive a dose this morning)
Transition to furosemide 20mg daily starting
Impression / Plan
-
BACKGROUND: 63-year-old female with coronary artery disease status/post CABG/AVR (07/21/23), chronic HFpEF, hypertension, moderate tricuspid regurgitation (PASP 56 mmHg), pulmonary hypertension, mild to moderate mitral stenosis/mitral regurgitation,
DM, carotid disease with prior stenting status-post recent left CEA (10/2023), and chronic opioid dependence admitted with change in mental status and diarrhea. The patient was started on an antibiotic 2 days ago due to left fifth digit infection
and subsequently developed symptoms. CT of the abdomen/pelvis on admission revealed moderate acute infectious enterocolitis involving most of the small bowel and proximal colon; GI consulted.
Change in mental status, resolved
HFpEF, acute on chronic
- CXR read as HF, and pBNP 6600; it was 6480 two months ago.
- Stop Lasix 40 mg IV daily with bump in creatinine, transition to oral Lasix starting
- She is at lowest documented weight, euvolemia weight appears to be ~76kg
- Later can consider additional GDMT for HFpEF (MRA, SLGT2-I/ARNI vs ARB)
Hypokalemia
- Repletion started
Acute enterocolitis with diarrhea
- Suspected infectious
- Per GI and hospitalist
- Cultures pending
CAD/AVR (CABG/AVR 07/21/2023)
Anemia, chronic, plans for OP GI evaluation
Mild to moderate mitral stenosis/mitral regurgitation
Hyperlipidemia
Hypertension
Chronic opioid use
NIDDM
Subjective:
No CP or dyspnea
Data:
Echo 11/03/2023:
LVEF 65-70%, mild/mod MR/MS, normally functioning bio AVR (mean 9 mmHg), mod TR, est PASP 56 mmHg.
Physical Exam
Vital Signs/Labs
Vital Signs
Temp Pulse Resp BP Pulse Ox
98.1 F 76 20 93/48 96
12/28/23 08:00 12/28/23 08:00 12/28/23 08:00 12/28/23 08:00 12/28/23 08:00
12/27/23 12/28/23 12/29/23
06:59 06:59 06:59
Actual Weight 76.884 kg 75.466 kg
12/28/23 09:23
12/28/23 09:23
Magnesium 1.8 mg/dl (1.6-2.3) 12/28/23 09:23
12/26/23
07:50
Lps-L-[id number] Pept 6600
Physical Exam
Constitutional: No acute distress and Comfortable
EENT: Anicteric and Moist mucous membranes
Cardiovascular: Rhythm & rate is regular, Pedal edema is absent and S1S2 is normal
Respiratory: Respiratory effort normal and Lungs clear to auscul.
GI: Distention absent, Flat and Normal bowel sounds
Neuro/Psych: AO x 3
Other: Skin (warm and dry)
Data Reviewed
-
Date of Service: December 28, 2023
[2023-12-28 11:25] VITALS: O2SAT 91
[2023-12-28 11:29] VITALS: O2SAT 90
[2023-12-28] MEDS: QUESTRAN 4 GRAM PO ×2 (11:31→20:49)
[2023-12-28 12:31] LABS: Glucose - Point of Care 93 mg/dl (70-99)
[2023-12-28] MEDS: NOVOLOG FLEXPEN-LOW RESISTANCE SC ×2 (12:44→17:26)
--- NOTE | 2023-12-28 14:42 | W.PN.HOSP.TC ---
Today's Communication/Plan
-
see note
Assessment / Plan
Assessment / Plan
CT Abdomen/Pelvis Results -- as per radiologist's report:
1. MODERATE ACUTE INFECTIOUS ENTEROCOLITIS involving most of the small bowel and proximal colon.
2. Severe diverticulosis in the sigmoid colon.
3. Mild urinary bladder wall thickening and perivesical inflammation suggesting ACUTE CYSTITIS.
4. 1.5 cm urinary bladder diverticulum.
5. Chronic pancreatitis.
6. Severe calcific atherosclerotic plaque in the common iliac arteries causing greater than 70% diameter stenoses.
7. Severe calcific atherosclerotic plaque in the abdominal aorta.
8. Small hiatal hernia.
9. Mild to moderate intrahepatic biliary dilatation.
10. Distended gallbladder containing cholelithiasis.
11. Mild hepatomegaly.
12. Mild acute interstitial cardiogenic pulmonary edema.
13. Small left pleural effusion.
14. SEVERE CENTRAL CANAL STENOSIS at L4/L5 secondary to severe facet joint arthrosis and periarticular calcifications around the facet joints.'

Acute Toxic Metabolic Encephalopathy - Improved
Chronic narcotic dependence back pain/spinal stenosis
-UA this admission was unremarkable this admission
-Was given antibiotics recently due to left fifth digit infection per reports -- but patient developed diarrhea after antibiotics were started
-Encephalopathy likely from polypharmacy and enterocolitis
Acute enterocolitis
-CT abdomen pelvis reading changes of chronic pancreatitis, may explain diarrhea since 2019
-CT abdomen pelvis also showing enterocolitis, infectious etiology being ruled out
-C. difficile/stool WBC/Cryptosporidium/Giardia negative. Bacterial culture report pending
-Currently off of antibiotics
-GI following and help appreciated
Chronic pancreatitis
Chronic diarrhea
-Stool fat content/pancreatic elastase test pending
-adding empiric cholestyramine and pancreatic enzyme trial as patient has significant diarrhea and incontinence from it
Acute on chronic HFpEF
Acute hypoxic respiratory insufficiency
-Patient has not been taking Lasix for the last month or so
-ProBNP elevated at admission
-Lasix to be held as creatinine elevation. Patient ongoing volume loss from diarrhea also contributing to this
NORBERTO
-Creatinine 1.3 today
-Hold Lasix
-f/u BMP in morning
Hyponatremia
-mild, presuming volume loss/hypovolemia related as already being diureses
-FeNa not helpful as patient
Coronary artery disease status-close CABG/AVR (07/21/23)
Carotid disease with prior stenting status-post recent left CEA (10/2023)
- cont. ASA, statin, and atenolol
History of left fifth metatarsal fracture
-In a recent admission, podiatry recommended she wears a walking shoe with ambulation, weightbearing as tolerated and follow-up with podiatry in the office in 4-6 weeks (which would be now)
Moderate tricuspid regurgitation (PASP 56 mmHg)
Pulmonary hypertension
Mild to moderate mitral stenosis/mitral regurgitation
Chronic normocytic anemia
Recent left carotid endarterectomy on 10/18 with residual improving neck swelling from post op edema
Prior right-sided carotid endarterectomy 5 years ago
Essential hypertension
Hyperlipidemia
GERD
Type II DM
COPD
Anxiety/depression
History of kidney stones
DVT PPx: Lovenox
Code: Full Code (per patient request on December 26, 2023)
Anticipated Discharge: 24 - 48 hours
Subjective/Interval History
-
Date of Service: December 28, 2023
Having diarrhea and some stool incontinence from that
no dyspnea/cough/chest pain
Objective Data
-
Labs:
Laboratory Results
12/28/23
09:23
WBC 4.6 L
Hgb 10.2 L
Hct 30.9 L
Plt Count 194
Sodium 130 L
Potassium 3.4 L
Chloride 94 L
Carbon Dioxide 23
BUN 36 H
Creatinine 1.3 H
Glucose 133 H
Calcium 8.8
Total Bilirubin 0.5
AST 29
ALT 30
Alkaline Phosphatase 90
Vital Signs:
Vital Signs
Temp Pulse Resp BP Pulse Ox
98.1 F 76 20 93/48 96
12/28/23 08:00 12/28/23 08:00 12/28/23 08:00 12/28/23 08:00 12/28/23 08:00
I&O
12/27/23 12/28/23 12/29/23
06:59 06:59 06:59
Intake Total 480 / 480 720 / 720
Output Total 1600 / 1600 400 / 400
Balance -1120 / -1120 320 / 320
Review of Systems
-
Respiratory: Reports No Symptoms
Cardiac: Reports No Symptoms
Abdomen/GI: Reports Abdominal Pain and Diarrhea
Physical Exam
-
General: No Apparent Distress and Comfortable
HEENT: Negative Oxygen
Respiratory: Clear to Auscultation
Cardiac: Regular Rhythm and S1/S2; Negative Murmur or Rub
GI: Soft, Nontender and Nondistended
Musculoskeletal: No Edema
Neuro: Awake, Alert, Oriented, No Motor Deficits and Nonfocal/Grossly Intact
Psych: Calm
[2023-12-28 16:00] VITALS: BP 98/60
--- NOTE | 2023-12-28 16:01 | CM ---
Patient seen bedside.
Patient continues with loose stools.
Patient continues with oxygen 2 liters (has home oxygen)
Plan: home with [facility] when stable
Leil[facility] BELTRAN
Fax #[phone]
[2023-12-28 17:16] LABS: Glucose - Point of Care 122 mg/dl (70-99)
[2023-12-28] MEDS: LOVENOX 40 MG SC (18:27)
[2023-12-28] MEDS: LIPITOR 20 MG PO (18:27)
[2023-12-28] MEDS: TENORMIN 25 MG PO (18:27)
[2023-12-28] MEDS: ZENPEP DELAYED RELEASE CAPSULE 1 CAPSULE PO (18:27)
[2023-12-28] MEDS: ZOFRAN 4 MG IV (20:50)
[2023-12-28] MEDS: CELEXA 40 MG PO (21:28)
[2023-12-28 23:32] VITALS: BP 94/54
[2023-12-29 03:14] LABS: Endomysial IgA Antibody Titer <1:10 (<1:10)
[2023-12-29 06:00] VITALS: BMI 28.4
[2023-12-29] MEDS: PERCOCET 5/325 2 TABLET PO ×3 (06:26→19:42)
[2023-12-29 07:31] LABS: Hematocrit 34.4 % (37.0-47.0); Mean Corpuscular Hgb 28.9 pg (27.0-31.0); Mean Corpuscular Volume 90.3 fL (81.0-99.0); Mean Platelet Volume 9.5 fL (7.4-10.4); Platelet Count 185 10^3/uL (130-400); Red Blood Cell Count 3.81 10^6/uL (4.20-5.40); Red Cell Dist. Width 14.2 % (11.5-14.5)
[2023-12-29 07:40] VITALS: BP 96/52
[2023-12-29 07:43] LABS: ALT (SGPT) 22 U/L (0-35); AST (SGOT) 22 U/L (14-36); Albumin 3.7 g/dl (3.5-5.0); Alkaline Phosphatase 89 U/L (38-126); Blood Urea Nitrogen 44 mg/dl (7-17); Calcium 8.8 mg/dl (8.4-10.2); Carbon Dioxide 21 mmol/L (22-30); Chloride 96 mmol/L (98-107); Estimated Creatinine Clearance 56 ml/min; Glucose 85 mg/dl (70-99); Potassium 4.3 mmol/L (3.5-5.1); Sodium 133 mmol/L (135-145); Total Bilirubin 0.4 mg/dl (0.2-1.3); Total Protein 6.8 g/dl (6.3-8.2); eGFR > 60.00
[2023-12-29 07:44] LABS: Glucose - Point of Care 86 mg/dl (70-99)
[2023-12-29] MEDS: NOVOLOG FLEXPEN-LOW RESISTANCE SC ×3 (08:44→16:57)
[2023-12-29] MEDS: ZENPEP DELAYED RELEASE CAPSULE 1 CAPSULE PO ×3 (08:46→17:53)
[2023-12-29] MEDS: FEOSOL 325 MG PO (08:46)
[2023-12-29] MEDS: DESENEX/MITRAZOL/ZEASORB 1 APPLIC TOPICAL ×2 (08:46→19:38)
[2023-12-29] MEDS: ASPIR LOW (ENTERIC COATED) 81 MG PO (08:46)
[2023-12-29] MEDS: PROTONIX 40 MG PO (08:46)
[2023-12-29] MEDS: QUESTRAN 4 GRAM PO ×2 (08:46→19:38)
[2023-12-29] MEDS: NEURONTIN 600 MG PO ×3 (08:46→21:37)
[2023-12-29] MEDS: BACTROBAN 2% OINTMENT 1 APPLIC TOPICAL (08:47)
--- NOTE | 2023-12-29 09:38 | W.PN.CD ---
Today's Communication / Plan
-
- Volume status improved.
- Will restart Lasix 20 mg PO daily tomorrow, which should be home dose.
- Outpatient follow-up with Cardiology.
Impression / Plan
-
BACKGROUND: 63-year-old female with coronary artery disease status/post CABG/AVR (07/21/23), chronic HFpEF, hypertension, moderate tricuspid regurgitation (PASP 56 mmHg), pulmonary hypertension, mild to moderate mitral stenosis/mitral regurgitation,
DM, carotid disease with prior stenting status-post recent left CEA (10/2023), and chronic opioid dependence admitted with change in mental status and diarrhea. The patient was started on an antibiotic 2 days ago due to left fifth digit infection
and subsequently developed symptoms. CT of the abdomen/pelvis on admission revealed moderate acute infectious enterocolitis involving most of the small bowel and proximal colon; GI consulted.
Change in mental status, resolved
HFpEF, acute on chronic
- CXR read as HF, and pBNP 6600; it was 6480 two months ago.
- Lasix 40 mg IV daily discontinued with bump in creatinine (now normalized).
- Volume status improved.
- Will restart Lasix 20 mg daily PO tomorrow, which should be home dose.
- She is at lowest documented weight, euvolemia weight appears to be ~76 kg--> currently 74.9 kg.
- Consider additional GDMT for HFpEF (MRA, SLGT2-I/ARNI vs ARB) as outpatient.
- Outpatient follow-up with Cardiology.
Hypokalemia
- Repleted.
Acute enterocolitis with diarrhea
- Suspected infectious
- Management as per GI and hospitalist
CAD/AVR (CABG/AVR 07/21/2023)
Anemia, chronic, plans for OP GI evaluation
Mild to moderate mitral stenosis/mitral regurgitation
Hyperlipidemia
Hypertension
Chronic opioid use
NIDDM
Subjective:
No major events overnight. No cardiac complaints this a.m.
Data:
Echo 11/03/2023:
LVEF 65-70%, mild/mod MR/MS, normally functioning bio AVR (mean 9 mmHg), mod TR, est PASP 56 mmHg.
Physical Exam
Vital Signs/Labs
Vital Signs
Temp Pulse Resp BP Pulse Ox
98 F 68 18 96/52 93
12/29/23 07:40 12/29/23 07:40 12/29/23 07:40 12/29/23 07:40 12/29/23 07:40
12/28/23 12/29/23 12/30/23
06:59 06:59 06:59
Actual Weight 75.466 kg 74.979 kg
12/29/23 06:37
12/29/23 06:37
Magnesium 1.8 mg/dl (1.6-2.3) 12/28/23 09:23
12/26/23
07:50
Fcy-X-Vkuczbkmwgm Pept 6600
Physical Exam
Constitutional: No acute distress and Comfortable
EENT: Anicteric
Cardiovascular: Rhythm & rate is regular, Pedal edema present (trace), Systolic murmur present (2/6) and S1S2 is normal
Respiratory: Respiratory effort normal and Lungs clear to auscul.
GI: Soft
Neuro/Psych: AO x 3
Other: Skin (Warm, dry, intact)
Data Reviewed
-
Date of Service: December 29, 2023
EKG: Tracing Personally Visualized and interpreted (Telemetry: Sinus rhythm)
Medical Tests (PFT, Pathology etc): Discussed with Physician (Primary Hospitalist)
Labs: Labs Reviewed by me
[2023-12-29 12:04] LABS: Glucose - Point of Care 115 mg/dl (70-99)
--- NOTE | 2023-12-29 14:08 | W.PN.GI.CBS2 ---
Today's Communication / Plan
-
Azithro 500mg x 3 days
send records to [facility]
ok to continue cholestyramine but warned of binding meds and causing constipation, so back off when able
Gi will sign off
Assessment / Plan
-
63-year-old female with hypertension, diabetes, CAD, peripheral vascular disease, COPD, GERD presenting with acute change in mental status, CT scan showing acute enterocolitis and GI consult was called in.
Chronic diarrhea since 2019, no GI workup done. Last colonoscopy 20 years ago, colon polyps removed as per patient.
-Acute enterocolitis, rule out infectious versus other
Stool for C. difficile, Cryptosporidium, Giardia and white cells negative, cultures pending and celiac panel pending.
Await fecal fat, calprotectin and pancreatic elastase. Add TSH/T4
Monitor electrolytes and replete.
Okay to advance to low residue diet, discussed with patient food choices going forward.
-Chronic anemia, baseline between 7 to 10 mg/dL
Needs outpatient follow-up. Discussed EGD/COLO as outpatient.
-Chronic diarrhea-await stool studies
Fecal fat, pancreatic elastase pending with possibility of chronic pancreatitis on CT scan.
Denies alcohol use or previous history of pancreatitis.
12/29/2023: Campylobacter came back positive and the stool culture
Since she has been hospitalized for this we will go ahead and treat with azithromycin 500 mg for 3 days
She is tolerating a diet and her diarrhea has slowed down
Would be okay for discharge with GI follow-up
She has contacted [facility] since she lives in [place] and would like her records sent there. Please fax them to [phone] so she can get an appointment for follow-up
-Normal stool calprotectin, stool fats and pancreatic elastase were sent and are pending. Celiac panel is mostly pending but her SUKHJINDER is negative
Subjective
Subjective
Date of Service: December 29, 2023
Patient states bowel movements have improved. They are less watery and less frequent, no abdominal pain. She is tolerating a diet well
Objective
Data Reviewed
Laboratory Data:
Laboratory Results
12/29/23 06:37
12/29/23 06:37
Laboratory Results
Magnesium 1.8 mg/dl (1.6-2.3) 12/28/23 09:23
Total Bilirubin 0.4 mg/dl (0.2-1.3) 12/29/23 06:37
AST 22 U/L (14-36) 12/29/23 06:37
ALT 22 U/L (0-35) 12/29/23 06:37
Alkaline Phosphatase 89 U/L (38-126) 12/29/23 06:37
Vital Signs and I&O:
Vital Signs
Temp Pulse Resp BP Pulse Ox
98 F 68 18 96/52 93
12/29/23 07:40 12/29/23 07:40 12/29/23 07:40 12/29/23 07:40 12/29/23 07:40
I&O
12/28/23 12/29/23 12/30/23
06:59 06:59 06:59
Intake Total 720 / 720 1200 / 1200
Output Total 400 / 400
Balance 320 / 320 1200 / 1200
Physical Exam
Physical Exam
HEENT: Anicteric
GI: Soft and Non Distended
Extremities: No Edema
Neuro: Non Focal
[2023-12-29 14:24] LABS: tTG IgA Antibody 8.4 EU/ml (0-19); tTG IgG Antibody 9.9 EU/ml (0-19)
[2023-12-29 15:12] VITALS: BP 108/54; PULSE 77; O2SAT 97
[2023-12-29] MEDS: ZITHROMAX 500 MG PO (15:29)
[2023-12-29 15:53] VITALS: BP 90/52
[2023-12-29 16:48] LABS: Glucose - Point of Care 119 mg/dl (70-99)
--- NOTE | 2023-12-29 16:55 | W.PN.HOSP.TC ---
Today's Communication/Plan
-
start azithromycin
lasix from tomorrow
f/u renal function
Assessment / Plan
Assessment / Plan
CT Abdomen/Pelvis Results -- as per radiologist's report:
1. MODERATE ACUTE INFECTIOUS ENTEROCOLITIS involving most of the small bowel and proximal colon.
2. Severe diverticulosis in the sigmoid colon.
3. Mild urinary bladder wall thickening and perivesical inflammation suggesting ACUTE CYSTITIS.
4. 1.5 cm urinary bladder diverticulum.
5. Chronic pancreatitis.
6. Severe calcific atherosclerotic plaque in the common iliac arteries causing greater than 70% diameter stenoses.
7. Severe calcific atherosclerotic plaque in the abdominal aorta.
8. Small hiatal hernia.
9. Mild to moderate intrahepatic biliary dilatation.
10. Distended gallbladder containing cholelithiasis.
11. Mild hepatomegaly.
12. Mild acute interstitial cardiogenic pulmonary edema.
13. Small left pleural effusion.
14. SEVERE CENTRAL CANAL STENOSIS at L4/L5 secondary to severe facet joint arthrosis and periarticular calcifications around the facet joints.'

Acute Toxic Metabolic Encephalopathy - Improved
Chronic narcotic dependence back pain/spinal stenosis
-UA this admission was unremarkable this admission
-Was given antibiotics recently due to left fifth digit infection per reports -- but patient developed diarrhea after antibiotics were started
-Encephalopathy likely from polypharmacy and enterocolitis
Acute enterocolitis from Campylobacter
-CT abdomen pelvis reading changes of chronic pancreatitis, may explain diarrhea since 2019
-CT abdomen pelvis also showing enterocolitis, infectious etiology being ruled out
-C. difficile/stool WBC/Cryptosporidium/Giardia negative.
-Started on azithromycin 3days for bacterial culture positive for Campylobacter
Chronic pancreatitis
Chronic diarrhea
-Stool fat content/pancreatic elastase test pending
-adding empiric cholestyramine and pancreatic enzyme trial as patient has significant diarrhea and incontinence from it
Acute on chronic HFpEF
Acute hypoxic respiratory insufficiency
-Patient has not been taking Lasix for the last month or so
-ProBNP elevated at admission
-Lasix will be resumed back on oral
NORBERTO - resolved
-Creatinine trended down
-Hold Lasix
-f/u BMP in morning
Hyponatremia
-mild, presuming volume loss/hypovolemia related as already being diureses
-FeNa not helpful as patient
Coronary artery disease status-close CABG/AVR (07/21/23)
Carotid disease with prior stenting status-post recent left CEA (10/2023)
- cont. ASA, statin, and atenolol
History of left fifth metatarsal fracture
-In a recent admission, podiatry recommended she wears a walking shoe with ambulation, weightbearing as tolerated and follow-up with podiatry in the office in 4-6 weeks (which would be now)
Moderate tricuspid regurgitation (PASP 56 mmHg)
Pulmonary hypertension
Mild to moderate mitral stenosis/mitral regurgitation
Chronic normocytic anemia
Recent left carotid endarterectomy on 10/18 with residual improving neck swelling from post op edema
Prior right-sided carotid endarterectomy 5 years ago
Essential hypertension
Hyperlipidemia
GERD
Type II DM
COPD
Anxiety/depression
History of kidney stones
DVT PPx: Lovenox
Code: Full Code (per patient request on December 26, 2023)
Anticipated Discharge: Within 24 hours
Subjective/Interval History
-
Date of Service: December 29, 2023
Diarrhea better
Patient had episode of nausea/vomiting in evening, no complains in morning
Objective Data
-
Labs:
Laboratory Results
12/29/23
06:37
WBC 4.0 L
Hgb 11.0 L
Hct 34.4 L
Plt Count 185
Sodium 133 L
Potassium 4.3 D
Chloride 96 L
Carbon Dioxide 21 L
BUN 44 H
Creatinine 1.0
Glucose 85
Calcium 8.8
Total Bilirubin 0.4
AST 22
ALT 22
Alkaline Phosphatase 89
Vital Signs:
Vital Signs
Temp Pulse Resp BP Pulse Ox
97.8 F 79 20 90/52 97
12/29/23 15:53 12/29/23 15:53 12/29/23 15:53 12/29/23 15:53 12/29/23 15:53
I&O
12/28/23 12/29/23 12/30/23
06:59 06:59 06:59
Intake Total 720 / 720 1200 / 1200
Output Total 400 / 400
Balance 320 / 320 1200 / 1200
Review of Systems
-
Respiratory: Reports No Symptoms
Cardiac: Reports No Symptoms
Abdomen/GI: Reports Vomiting and Diarrhea
Physical Exam
-
General: No Apparent Distress and Comfortable
HEENT: Negative Oxygen
Respiratory: Clear to Auscultation
Cardiac: Regular Rhythm and S1/S2; Negative Murmur or Rub
GI: Soft, Nontender and Nondistended
Musculoskeletal: No Edema
Neuro: Awake, Alert, Oriented, No Motor Deficits and Nonfocal/Grossly Intact
Psych: Calm
[2023-12-29] MEDS: TENORMIN 25 MG PO (17:52)
[2023-12-29] MEDS: LIPITOR 20 MG PO (17:52)
[2023-12-29] MEDS: LOVENOX 40 MG SC (17:53)
[2023-12-29] MEDS: ZOFRAN 4 MG IV (19:09)
[2023-12-29 21:26] LABS: Glucose - Point of Care 140 mg/dl (70-99)
[2023-12-29] MEDS: CELEXA 40 MG PO (21:37)
[2023-12-29] MEDS: BENADRYL 12.5 MG IV (21:38)
[2023-12-29 23:18] VITALS: BP 99/58
[2023-12-30 01:28] LABS: Fat, Fecal - Neutral Normal (Normal); Fat, Fecal - Split Normal (Normal)
[2023-12-30] MEDS: PERCOCET 5/325 2 TABLET PO (04:55)
[2023-12-30 04:59] VITALS: BMI 28.4
[2023-12-30 07:43] LABS: Glucose - Point of Care 126 mg/dl (70-99)
[2023-12-30 07:45] VITALS: BP 105/54
[2023-12-30] MEDS: NOVOLOG FLEXPEN-LOW RESISTANCE SC ×2 (07:47→12:05)
[2023-12-30] MEDS: QUESTRAN 4 GRAM PO (07:48)
[2023-12-30] MEDS: ZENPEP DELAYED RELEASE CAPSULE 1 CAPSULE PO (07:52)
[2023-12-30] MEDS: LASIX 20 MG PO (07:52)
[2023-12-30] MEDS: ZITHROMAX 500 MG PO (07:52)
[2023-12-30] MEDS: DESENEX/MITRAZOL/ZEASORB 1 APPLIC TOPICAL (07:53)
[2023-12-30] MEDS: PROTONIX 40 MG PO (07:53)
[2023-12-30] MEDS: FEOSOL 325 MG PO (07:53)
[2023-12-30] MEDS: ASPIR LOW (ENTERIC COATED) 81 MG PO (07:53)
[2023-12-30] MEDS: BACTROBAN 2% OINTMENT 1 APPLIC TOPICAL (07:53)
[2023-12-30] MEDS: NEURONTIN 600 MG PO (07:53)
[2023-12-30 08:00] LABS: Hematocrit 31.9 % (37.0-47.0); Hemoglobin 10.5 g/dL (12.0-16.0); Mean Corp Hgb Conc. 32.9 g/dL (33.0-37.0); Mean Corpuscular Hgb 29.2 pg (27.0-31.0); Mean Corpuscular Volume 88.6 fL (81.0-99.0); Mean Platelet Volume 9.4 fL (7.4-10.4); Platelet Count 253 10^3/uL (130-400); Red Cell Dist. Width 14.2 % (11.5-14.5); White Blood Cell Count 6.6 10^3/uL (4.8-10.8)
[2023-12-30 08:07] VITALS: BP 105/54
--- NOTE | 2023-12-30 08:08 | PN.CDI ---
CDI
- -
CDI:
Physician Documentation Request
Admit Date: 12/25/23 23:46
Dear Doctor Mark,
Clinical Indicators:
Patient admitted with acute toxic metabolic encephalopathy; on Bactrim prior to admission for left 5th digit infection.
12/29 PN,'...Encephalopathy likely from polypharmacy and enterocolitis; Acute enterocolitis from Campylobacter...'
WBC trend:
12/25/23 12/26/23 12/27/23
20:55 07:50 08:54
WBC 6.9 5.2 3.7 L
Temp trend on admission:
12/25/23
19:49 12/25/23
21:31
Temp 99.9 F 100.9 F H
HR trend on admission:
12/25/23
19:49 12/26/23
01:23 12/26/23
08:22
Pulse 105 99 96
12/26/23
15:22 12/26/23
17:42 12/26/23
23:07
Pulse 104 100 99
Please clarify which of the following most accurately describes the status of the patient's infection:
Sepsis (please specify if POA)
- Systemic manifestations of infection, with 2 or more SIRS criteria which include:
- Fever >100.4 degrees F or hypothermia < 96.8 degrees F
- Leukocytosis - WBC > 12,000 or leukopenia - WBC < 4,000 or > 10% bands
- Tachycardia > 90 beats per minute
- Tachypnea - RR > 20 breaths per minute or PaCO2 , 32mmHg
Source: [employer] Manual 2012
Acute enterocolitis from Campylobacter Only, Without Systemic Illness
Other, please specify
Use of terms such as suspected, likely, concern for, or probable (associated with a specific diagnosis that is being evaluated, monitored, or treated as if it exists) are acceptable and can be coded in the inpatient setting, when documented at the
time of discharge.
Thank you,
VIANNEY Lin RN
CDI Specialist
available via tiger text
Please use your independent medical judgment in providing your response.
[2023-12-30 08:30] LABS: Blood Urea Nitrogen 54 mg/dl (7-17); Calcium 8.8 mg/dl (8.4-10.2); Carbon Dioxide 25 mmol/L (22-30); Chloride 95 mmol/L (98-107); Estimated Creatinine Clearance 51 ml/min; Glucose 121 mg/dl (70-99); Potassium 3.5 mmol/L (3.5-5.1); Sodium 132 mmol/L (135-145); eGFR 55.76
--- NOTE | 2023-12-30 09:58 | WOUNDNOTE ---
[facility] RN note: Patient's L little finger improved, scant serous yellow drainage, no purulent drainage. Erythema resolving. Current wound care appropriate. Dressing changed. Skin on heels and sacrum intact. Lower sacrum blanchable red. Patient moves
self. Patient for discharge possibly today.
[2023-12-30 11:14] VITALS: BP 109/57
--- NOTE | 2023-12-30 11:56 | CM ---
Addendum entered by Lisa Weaver 12/30/23 12:13:
Met with patient at bedside
[facility] IMM benefit explained; form signed @1210
Patient stated that daughter will transport home
Original Note:
Plan: Discharge to Home with resumption of care from [facility] (VN, PT); [facility] Office
[facility] notified of DC via [facility] and phone call to liaisonSusan
[2023-12-30] MEDS: ZENPEP DELAYED RELEASE CAPSULE PO (12:05)
--- NOTE | 2023-12-30 14:37 | W.PN.HOSP.TC ---
Addendum entered and electronically signed by Tong Flores MD 12/31/23 09:15:
Sepsis- POA from Acute enterocolitis from Campylobacter
Original Note:
Today's Communication/Plan
-
d/c home
Assessment / Plan
Assessment / Plan
CT Abdomen/Pelvis Results -- as per radiologist's report:
1. MODERATE ACUTE INFECTIOUS ENTEROCOLITIS involving most of the small bowel and proximal colon.
2. Severe diverticulosis in the sigmoid colon.
3. Mild urinary bladder wall thickening and perivesical inflammation suggesting ACUTE CYSTITIS.
4. 1.5 cm urinary bladder diverticulum.
5. Chronic pancreatitis.
6. Severe calcific atherosclerotic plaque in the common iliac arteries causing greater than 70% diameter stenoses.
7. Severe calcific atherosclerotic plaque in the abdominal aorta.
8. Small hiatal hernia.
9. Mild to moderate intrahepatic biliary dilatation.
10. Distended gallbladder containing cholelithiasis.
11. Mild hepatomegaly.
12. Mild acute interstitial cardiogenic pulmonary edema.
13. Small left pleural effusion.
14. SEVERE CENTRAL CANAL STENOSIS at L4/L5 secondary to severe facet joint arthrosis and periarticular calcifications around the facet joints.'

Acute Toxic Metabolic Encephalopathy - Improved
Chronic narcotic dependence back pain/spinal stenosis
-UA this admission was unremarkable this admission
-Was given antibiotics recently due to left fifth digit infection per reports -- but patient developed diarrhea after antibiotics were started
-Encephalopathy likely from polypharmacy and enterocolitis
Acute enterocolitis from Campylobacter
-CT abdomen pelvis reading changes of chronic pancreatitis, may explain diarrhea since 2019
-CT abdomen pelvis also showing enterocolitis, infectious etiology being ruled out
-C. difficile/stool WBC/Cryptosporidium/Giardia negative.
-Started on azithromycin 3days for bacterial culture positive for Campylobacter
-Patient will need to follow-up with [facility]
Chronic pancreatitis
Chronic diarrhea
-Stool fat content normal. Stool pancreatic enzyme assay pending.
-Reviewed cholestyramine/pancreatic enzymes less likely pancreatitis related.
Acute on chronic HFpEF
Acute hypoxic respiratory insufficiency
-Patient has not been taking Lasix for the last month or so
-ProBNP elevated at admission
-resumed back on lasix
NORBERTO - resolved
-Creatinine trended down
-Hold Lasix
-f/u BMP in morning
Hyponatremia
-mild, presuming volume loss/hypovolemia related as already being diureses
-FeNa not helpful as patient
Coronary artery disease status-close CABG/AVR (07/21/23)
Carotid disease with prior stenting status-post recent left CEA (10/2023)
- cont. ASA, statin, and atenolol
History of left fifth metatarsal fracture
-In a recent admission, podiatry recommended she wears a walking shoe with ambulation, weightbearing as tolerated and follow-up with podiatry in the office in 4-6 weeks (which would be now)
Moderate tricuspid regurgitation (PASP 56 mmHg)
Pulmonary hypertension
Mild to moderate mitral stenosis/mitral regurgitation
Chronic normocytic anemia
Recent left carotid endarterectomy on 10/18 with residual improving neck swelling from post op edema
Prior right-sided carotid endarterectomy 5 years ago
Essential hypertension
Hyperlipidemia
GERD
Type II DM
COPD
Anxiety/depression
History of kidney stones
DVT PPx: Lovenox
Code: Full Code (per patient request on December 26, 2023)
More than 30 minutes spent in discharge including
Final examination of the patient
Summarizing hospital stay
Instructions for continuing care to all relevant caregivers
Preparation of discharge records, prescriptions, and referral forms
Total time spent (in minutes): 38 mins
Anticipated Discharge: Today
Subjective/Interval History
-
Date of Service: December 30, 2023
No issues overnight
Objective Data
-
Labs:
Laboratory Results
12/30/23
07:49
WBC 6.6
Hgb 10.5 L
Hct 31.9 L
Plt Count 253 D
Sodium 132 L
Potassium 3.5
Chloride 95 L
Carbon Dioxide 25
BUN 54 H
Creatinine 1.1 H
Glucose 121 H
Calcium 8.8
Vital Signs:
Vital Signs
Temp Pulse Resp BP Pulse Ox
97.8 F 69 20 109/57 95
12/30/23 11:14 12/30/23 11:14 12/30/23 11:14 12/30/23 11:14 12/30/23 11:14
I&O
12/29/23 12/30/23 12/31/23
06:59 06:59 06:59
Intake Total 1200 / 1200 720 / 720
Balance 1200 / 1200 720 / 720
Review of Systems
-
Respiratory: Reports No Symptoms
Cardiac: Reports No Symptoms
Abdomen/GI: Reports Diarrhea; Denies Nausea or Vomiting
Physical Exam
-
General: No Apparent Distress and Comfortable
HEENT: Negative Oxygen
Respiratory: Clear to Auscultation
Cardiac: Regular Rhythm and S1/S2; Negative Murmur or Rub
GI: Soft, Nontender and Nondistended
Musculoskeletal: No Edema
Neuro: Awake, Alert, Oriented, No Motor Deficits and Nonfocal/Grossly Intact
Psych: Calm
--- NOTE | 2023-12-31 17:46 | W.DCSUMMARY ---
Discharge Summary
Discharge Data
Date of Admission: 12/25/23
Date of Discharge: 12/30/23
-
Pending Results: Yes
Additional Pending Results:
Stool Calprotectin/pancreatic elastase level and stool are pending at time of discharge.
Hospital Course
Discharging Physician : Dr Tong Flores
Disposition : Home
Primary care physician : Dr Mic Miller
Principal Discharge diagnosis :
Acute toxic metabolic encephalopathy
Sepsis from Campylobacter enterocolitis
Chronic diarrhea from pancreatitis
Acute hypoxic respiratory insufficiency
Acute on chronic diastolic congestive heart failure
Acute kidney injury
Hyponatremia
Chronic Discharge diagnosis :
Coronary disease with history of bypass/aortic valve placement
History of carotid disease with stenting
History of left fifth metatarsal fracture
Moderate tricuspid regurgitation
Pulmonary hypertension
Moderate mitral stenosis/mitral regurgitation
Chronic normocytic anemia
History of bilateral carotid endarterectomy
Essential hypertension
Hyperlipidemia
Gastroesophageal reflux disease
Type 2 diabetes mellitus
Chronic obstructive pulmonary disease
Anxiety/depression
History of nephrolithiasis
Hospital Course :
Patient is a 63-year-old female with above-mentioned past medical history was brought to ER for having new onset of confusion. Patient had associated generalized weakness and was noted to be hypoxic in ER.
Patient confusion/toxic metabolic encephalopathy was felt to be related to polypharmacy and enterocolitis/sepsis related. After adjustment of medication and improvement of enterocolitis patient mentation normalized.
Patient was complaining of chronic diarrhea with worsening as well for which patient had CT abdomen pelvis. CT abdomen pelvis showing changes of chronic pancreatitis with enterocolitis. Gastroenterology was involved in care and patient had stool
studies thanks for C. difficile/ova/parasite/bacterial culture out of which patient was found to be positive for Campylobacter. Patient was started on 3 days of azithromycin therapy for this. Patient chronic diarrhea component was felt to be
related to chronic pancreatitis and stool studies were sent for fat/calprotectin/pancreatic elastase out of which fat level resulted normal. Calprotectin/pancreatic elastase level and stool are pending at time of discharge.
Patient had minimal hypoxia and was felt to be related to diastolic heart failure exacerbation. Patient was given diuretic therapy although have worsening of renal function for which diuretics were hold. After improvement patient to be resumed
back on diuretics. At discharge patient maintained on oral Lasix 20 mg daily.
Mild hyponatremia felt to be diarrhea/hypovolemia related. Improved before discharge
Patient discharged home post medical stabilization.
Important imaging findings :
None
Procedure findings :
None
Discharge Plan
-
Patient Disposition: Home with Home Care
Discharge Diagnosis/Procedures: Campylobacter diarrhea, Chronic pancreatitis, chronic diarrhea, acute on chronic diastolic HF
Condition: Fair
Diet: Regular
Activity: As tolerated
Driving Restrictions: No driving
Bathing Restrictions: OK to Shower
Activity Restrictions/Additional Instructions:
Wound Care Instructions
L little finger wound-clean with saline or soap and water, Bactroban ointment, cover with non stick dressing (i.e. Band-aide or bordered foam dressing). Change daily and as needed for drainage.
Miconazole powder to abdominal folds, perineum, affected areas twice a day.
Follow up at wound care center if needed, call for an appointment.
Instructions: *PCP/Other Adjunct Physics Instructor Heart Failure Instructions
Referrals:
Wade Munoz DO [Non-Admitting Privileges] - in one to two weeks (Please call and arrange your follow-up with cardiology)
Ashley Delgado CRNP [Specified Professional Personl] - 02/01/24 11:30 am (call to confirm appt with [facility] vs follow at [facility] as know to that practice. )
Mic Miller MD [Family Provider] - in one week
Prescriptions:
New
azithromycin 250 mg Tablet
500 mg PO DAILY Qty: 2 0RF
furosemide [Lasix] 20 mg tablet
20 mg PO DAILY Qty: 30 0RF
Continued
gabapentin 600 mg Tablet
600 mg PO TID
aspirin 81 mg Tablet,Delayed Release (Dr/Ec)
81 mg PO DAILY
ferrous sulfate [FeroSul] 325 mg (65 mg iron) Tablet
325 mg PO DAILY Qty: 30 0RF
pantoprazole 40 mg Tablet,Delayed Release (Dr/Ec)
40 mg PO DAILY Qty: 30 0RF
citalopram 40 mg Tablet
40 mg PO HS Qty: 10 0RF
atorvastatin [Lipitor] 20 mg Tablet
20 mg PO QPM
diazepam 5 mg Tablet
5 mg PO HSPRN PRN (Reason: SLEEP)
metformin 500 mg tablet
500 mg PO BID@0800,1700
atenolol 25 mg Tablet
25 mg PO QPM Qty: 30 0RF
oxycodone-acetaminophen 10-325 mg Tablet
1 tab PO Q4HPRN PRN (Reason: SEVERE PAIN) Qty: 30 0RF
Discontinued
acetaminophen 650 mg Tablet Extended Release
1,300 mg PO BIDPRN PRN (Reason: mild pain)
polyethylene glycol 3350 17 gram/dose powder
17 g PO DAILY Qty: 510 0RF
Discharge Orders:
Discharge Patient (As Directed); Ordered 12/30/23
Ordered By: Tong Flores
Discharge Date and Time
Discharge Date/Time: 12/30/23 13:03
Print Language: [id number]
[2023-12-31 22:59] LABS: Calprotectin, Fecal 742 ug/g (<=49); Pancreatic Elastase, Fecal 32 ug/g (>=100)
== END 2023-12-30 13:03 | disposition home health service (06) | DRG 871 ==
LOC: 4 WEST ACU 23:46
PROVIDERS: Emergency Medicine; Nurse Practitioner; Physician Assistant; Registered Nurse; ADMITTING PHYSICIAN Internal Medicine; ATTENDING PHYSICIAN Hospitalist; CONSULT PHYSICIAN Internal Medicine; CONSULT PHYSICIAN Internal Medicine Gastroenterology; EMERGENCY PHYSICIAN Student in an Organized Health Care Education/Training Program; FAMILY PHYSICIAN Family Medicine
DX: A41.9 Sepsis, unspecified organism (principal); G92.8 Other toxic encephalopathy; I50.33 Acute on chronic diastolic (congestive) heart failure; A04.5 Campylobacter enteritis; N17.9 Acute kidney failure, unspecified; E87.1 Hypo-osmolality and hyponatremia; K86.1 Other chronic pancreatitis; F11.20 Opioid dependence, uncomplicated; R09.02 Hypoxemia; I11.0 Hypertensive heart disease with heart failure; G89.29 Other chronic pain; I25.10 Atherosclerotic heart disease of native coronary artery without angina pectoris; E78.00 Pure hypercholesterolemia, unspecified; K21.9 Gastro-esophageal reflux disease without esophagitis; E11.51 Type 2 diabetes mellitus with diabetic peripheral angiopathy without gangrene; D64.9 Anemia, unspecified; Z66 Do not resuscitate; I27.20 Pulmonary hypertension, unspecified; I08.3 Combined rheumatic disorders of mitral, aortic and tricuspid valves; R65.20 Severe sepsis without septic shock; T50.995A Adverse effect of other drugs, medicaments and biological substances, initial encounter; E86.1 Hypovolemia; E87.6 Hypokalemia; J44.9 Chronic obstructive pulmonary disease, unspecified; F41.9 Anxiety disorder, unspecified; F32.A Depression, unspecified; M48.00 Spinal stenosis, site unspecified; Z11.52 Encounter for screening for COVID-19; Z95.1 Presence of aortocoronary bypass graft; Z95.5 Presence of coronary angioplasty implant and graft; Z95.2 Presence of prosthetic heart valve; Z87.891 Personal history of nicotine dependence; Z79.84 Long term (current) use of oral hypoglycemic drugs; Z79.82 Long term (current) use of aspirin
CPT/HCPCS: 51701; 71046; 74177; 80048; 80053; 81003; 81015; 82653; 82705; 82784; 82962; 83036; 83516; 83605; 83735; 83880; 83993; 84443; 85025; 85027; 86231; 87040; 87045; 87046; 87324; 87328; 87329; 87427; 87449; 87798; 87811; 89055; 93005; 96361; 96374; 97163; 97166; 97530; 99285; Q9967